=== PATIENT | female | born 1930 | race Caucasian/White ===

== ENCOUNTER 2016-08-01 14:14 | Inpatient (IN) | payer MEDICARE, BC ==
[~2016-08-01] VITALS: Ht 157.4 cm; Wt 48.1 kg
[2016-08-01 14:14] VITALS: BP 114/60
[~2016-08-01 14:14] MED LIST: ACETAMINOPHEN650 MG PO; ADVAIR 250/501 EA INH; ALAVERT10 M1 PO; ALBUTEROL2.5 MG/0.5 INH; ALBUTEROL2.5 MG/0.5 NEB; ALPRAZOLAM0.25 M2 PO; AMOXICILLIN500 M2 PO; ASPIRIN81 M1 PO; B121000 MCG/1 IM; BACTROBAN OINT0.9 GM T; BREO ELLIPTA 11 EACH IH; CEFTRIAXON1 GM/50 ML IV; CIPRO500 MG PO; CLARITIN10 MG PO; CORDROL20 MG PO; DIGITEK0.125 MG PO; DOXYCYCLINE HY100 M5 PO; DUONEB 3 MG/3 ML3 M1 NEB; FIORICET 50-301 EACH PO; FLONASE 0.05% 121 EA; FLONASE ALLERG9.9 ML NAS; IBU800 M1 PO; KEFLEX500 M1 PO; LEVAQUIN25 MG/M1 PO; LEVOFLOXACIN500 MG PO; LEVOTHROID0.05 MG PO; LEVOTHYROXINE0.05 MG PO; Lovenox40 MG/0.4 SC; MACROBID100 M1 PO; MAPAP EXTRA ST500 M1 PO; MAPAP325 MG PO; MILK OF MA400 MG/51 PO; MOTRIN CHI100 MG/51 PO; MOTRIN400 MG PO; Motrin,Rufen800 MG PO; NORCO 5-325 TA1 EACH PO; NOVAPLUS SOLU-M40 MG IV; PREDNISONE20 M1 PO; PREVACID SOLUTA30 MG PO; PRILOSEC20 M1 PO; PYRIDIUM100 MG PO; ROBITUSSIN AC 110 ML PO; ROBITUSSIN5 ML PO; SINGULAIR10 M1 PO; SINGULAIR10 MG PO; SYMBICORT1 AE1 INH; SYMBICORT1 AER INH; SYNTHROID,LEVO75 MCG PO; Synthroid,Levo50 MCG PO; TYLENOL EXTRA500 M2 PO; TYLENOL325 M1 PO; TYLENOL325 M2 PO; TYLENOL80 MG PO; VIBRAMYCIN100 MG PO; VITAMIN B1225 MCG IM; [UNRECOGNIZED DRUG - OTHER]
[2016-08-01] MEDS ORDERED: Synthroid,Levo50 MCG PO (14:34)
[2016-08-01] MEDS ORDERED: COUMADIN5 M2 PO (14:35)
[2016-08-01 15:05] LABS: BASO % 0.3 % (0.0-1.0); EOS # 0.5 10*3/uL (0.0-0.4); EOS % 6.5 % (1.0-4.0); HEMATOCRIT 36.3 % (37.0-47.0); HEMOGLOBIN 10.9 g/dl (12.0-16.0); LYMPH # 2.5 10*3/uL (1.3-4.4); LYMPH % 34.1 % (27.0-41.0); MEAN CELL VOLUME 70.1 fl (81.0-99.0); MONO # 0.5 10*3/uL (0.1-1.0); MONO % 6.9 % (3.0-9.0); NEUT # 3.8 10*3/uL (2.3-7.9); NEUT % 51.7 % (47.0-73.0); PLATELET COUNT AUTOMATED 355 10*3/uL (130-400); RED BLOOD COUNT 5.18 10*6/uL (4.10-5.10); RED CELL DISTRI WIDTH 19.4 % (0-14.5); WHITE BLOOD COUNT 7.3 10*3/uL (4.8-10.8)
[2016-08-01 15:19] LABS: PROTHROMBIN TIME 62.9 SECONDS (9.0-12.4)
[2016-08-01 15:20] LABS: ALBUMIN 2.8 gm/dl (3.1-4.5); ALKALINE PHOSPHATASE 100 U/L (45-117); BILIRUBIN, TOTAL 0.3 mg/dl (0.2-1.0); BUN 12 mg/dl (7-24); CARBON DIOXIDE 26 mmol/L (21-32); CHLORIDE 102 mmol/L (98-107); EST GLOM FILT AFRICAN AMERICAN > 60 ml/min; GLUCOSE 107 mg/dL (65-99); POTASSIUM 3.7 mmol/L (3.5-5.1); SGOT/AST 14 IU/L (3-35); SGPT/ALT 13 U/L (12-78); SODIUM 136 mmol/L (136-145); TOTAL PROTEIN 6.9 gm/dL (6.4-8.2)
[2016-08-01 15:21] LABS: INTERNATIONAL NORM RATIO 5.6 (2.0-3.5)
[2016-08-01 15:43] LABS: BILIRUBIN NEGATIVE (NEGATIVE); BLOOD 1+ (NEGATIVE); CLARITY SL CLOUDY (CLEAR); COLOR YELLOW (YELLOW); GLUCOSE NEGATIVE (NEGATIVE); KETONE TRACE (NEGATIVE); LEUKO ESTERASE 3+ (NEGATIVE); NITRITE POSITIVE (NEGATIVE); PH 6.5 (5.0-9.0); PROTEIN TRACE (NEGATIVE); UROBILINOGEN 0.2 E.U./dl (0.2-1.0)
[2016-08-01 16:41] LABS: BACTERIA 3+; URINE REFLEX COMMENT YES (NO); WBC TNTC wbc/hpf (0-5)
[2016-08-01 18:12] VITALS: BP 110/58
[2016-08-01] MEDS ORDERED: WARFARIN SOD5 MG PO ×2 (18:24→18:39)
[2016-08-01] MEDS ORDERED: COUMADIN3 M1 PO (18:26)
[2016-08-01 18:35] VITALS: BP 138/80
[2016-08-01 20:00] VITALS: BP 119/75
[2016-08-02] VITALS: BP 124/67
[2016-08-02 06:29] LABS: BASO % 0.4 % (0.0-1.0); EOS # 0.8 10*3/uL (0.0-0.4); HEMATOCRIT 36.2 % (37.0-47.0); HEMOGLOBIN 10.9 g/dl (12.0-16.0); IG # 0.1 10*3/uL (0.0-0.1); LYMPH % 35.6 % (27.0-41.0); MEAN CELL VOLUME 69.7 fl (81.0-99.0); MEAN CORPUSCULAR HGB CONC 30.1 g/dl (33.0-37.0); MEAN PLATELET VOLUME 7.9 fl (9.6-12.3); MONO # 0.7 10*3/uL (0.1-1.0); MONO % 8.5 % (3.0-9.0); NEUT # 3.9 10*3/uL (2.3-7.9); NEUT % 45.8 % (47.0-73.0); PLATELET COUNT AUTOMATED 357 10*3/uL (130-400); RED BLOOD COUNT 5.19 10*6/uL (4.10-5.10); RED CELL DISTRI WIDTH 19.4 % (0-14.5); WHITE BLOOD COUNT 8.5 10*3/uL (4.8-10.8)
[2016-08-02 07:02] LABS: INTERNATIONAL NORM RATIO 2.8 (2.0-3.5); PROTHROMBIN TIME 31.1 SECONDS (9.0-12.4)
[2016-08-02 07:07] LABS: BUN 10 mg/dl (7-24); CARBON DIOXIDE 27 mmol/L (21-32); CHLORIDE 102 mmol/L (98-107); EST GLOM FILT AFRICAN AMERICAN > 60 ml/min; FREE T4 1.07 ng/dl (0.76-1.46); GLUCOSE 81 mg/dL (65-99); POTASSIUM 3.8 mmol/L (3.5-5.1); SODIUM 139 mmol/L (136-145)
[2016-08-02 07:33] LABS: FOLIC ACID 9.93 ng/mL (>5.38)
[2016-08-02 08:00] VITALS: BP 108/60
[2016-08-02 12:00] VITALS: BP 118/67
[2016-08-02 16:00] VITALS: BP 123/65
[2016-08-02 20:00] VITALS: BP 109/57
[2016-08-03] VITALS: BP 102/51
[2016-08-03 06:44] LABS: INTERNATIONAL NORM RATIO 1.6 (2.0-3.5); PROTHROMBIN TIME 16.7 SECONDS (9.0-12.4)
[2016-08-03 08:00] VITALS: BP 115/63
[2016-08-03 12:00] VITALS: BP 120/62
[2016-08-03 16:00] VITALS: BP 121/63
[2016-08-03 20:00] VITALS: BP 118/59
[2016-08-04] VITALS: BP 127/68
[2016-08-04 07:55] LABS: INTERNATIONAL NORM RATIO 2.3 (2.0-3.5); PROTHROMBIN TIME 25.1 SECONDS (9.0-12.4)
[2016-08-04 08:00] VITALS: BP 126/67
[2016-08-04 16:00] VITALS: BP 144/71
[2016-08-04 20:00] VITALS: BP 116/54
[2016-08-05] VITALS: BP 114/60
[2016-08-05 07:18] LABS: INTERNATIONAL NORM RATIO 3.3 (2.0-3.5); PROTHROMBIN TIME 36.7 SECONDS (9.0-12.4)
[2016-08-05 08:00] VITALS: BP 117/78
[2016-08-05 12:00] VITALS: BP 128/82
[2016-08-05 16:00] VITALS: BP 110/67
[2016-08-05 20:00] VITALS: BP 123/74
[2016-08-06] VITALS: BP 115/65
[2016-08-06 06:59] LABS: BASO % 0.1 % (0.0-1.0); EOS % 0.2 % (1.0-4.0); HEMATOCRIT 35.1 % (37.0-47.0); HEMOGLOBIN 10.5 g/dl (12.0-16.0); IG # 0.1 10*3/uL (0.0-0.1); LYMPH % 30.6 % (27.0-41.0); MEAN CELL VOLUME 69.2 fl (81.0-99.0); MEAN CORPUSCULAR HGB 20.7 pg (27.0-31.0); MEAN CORPUSCULAR HGB CONC 29.9 g/dl (33.0-37.0); MONO # 0.7 10*3/uL (0.1-1.0); NEUT # 5.9 10*3/uL (2.3-7.9); PLATELET COUNT AUTOMATED 380 10*3/uL (130-400); RED BLOOD COUNT 5.07 10*6/uL (4.10-5.10); RED CELL DISTRI WIDTH 19.5 % (0-14.5); WHITE BLOOD COUNT 9.6 10*3/uL (4.8-10.8)
[2016-08-06 07:18] LABS: BUN 10 mg/dl (7-24); CARBON DIOXIDE 26 mmol/L (21-32); CHLORIDE 101 mmol/L (98-107); EST GLOM FILT AFRICAN AMERICAN > 60 ml/min; GLUCOSE 89 mg/dL (65-99); SODIUM 139 mmol/L (136-145)
[2016-08-06 07:21] LABS: PROTHROMBIN TIME 32.8 SECONDS (9.0-12.4)
[2016-08-06 08:00] VITALS: BP 139/75
[2016-08-06 12:00] VITALS: BP 136/72
[2016-08-06] MEDS ORDERED: LEVAQUIN750 M1 PO (12:59)
[2016-08-06] MEDS ORDERED: ORGAN-1 NR200 MG PO (13:01)
[2016-08-06] MEDS ORDERED: Coumadin3 MG PO (13:01)
[2016-08-06] MEDS ORDERED: PREDNISONE10 MG PO (13:01)
[2016-08-06] MEDS ORDERED: BENZONATATE100 M1 PO (13:01)
[2016-08-06 16:44] VITALS: BP 121/61
[2016-08-06] MEDS ORDERED: NORCO 5-325 TA1 EACH PO (17:13)
[2016-09-22] MEDS ORDERED: BENADRYL ALLERG25 M5 PO (13:20)
[2016-09-22] MEDS ORDERED: SYMBICORT1 AER INH (13:22)
[2016-09-26] MEDS ORDERED: LORAZEPAM0.5 MG PO (10:24)
[2016-09-26] MEDS ORDERED: D-1000 185 MG-11 TAB PO (10:24)
[2016-09-26] MEDS ORDERED: PREDNISONE10 MG PO (10:28)
[2016-09-26] MEDS ORDERED: LEVAQUIN750 M1 PO (10:28)
== END 2016-08-06 16:40 | disposition home health service (06) | DRG 190 ==
LOC: ED 14:14 → 4E 17:31 → EDHOLD 17:31 → 4E 17:47
PROVIDERS: Hospitalist; Internal Medicine; Nurse Practitioner Family
DX: J44.1 Chronic obstructive pulmonary disease with (acute) exacerbation (principal); E43 Unspecified severe protein-calorie malnutrition; I48.0 Paroxysmal atrial fibrillation; D68.59 Other primary thrombophilia; Z99.81 Dependence on supplemental oxygen; B96.5 Pseudomonas (aeruginosa) (mallei) (pseudomallei) as the cause of diseases classified elsewhere; N30.01 Acute cystitis with hematuria; Z68.1 Body mass index [BMI] 19.9 or less, adult; E03.9 Hypothyroidism, unspecified; D50.9 Iron deficiency anemia, unspecified; K21.9 Gastro-esophageal reflux disease without esophagitis; J45.909 Unspecified asthma, uncomplicated; G89.29 Other chronic pain; M54.9 Dorsalgia, unspecified; Z98.49 Cataract extraction status, unspecified eye; Z90.49 Acquired absence of other specified parts of digestive tract; Z90.710 Acquired absence of both cervix and uterus; Z98.890 Other specified postprocedural states; Z88.2 Allergy status to sulfonamides; Z88.1 Allergy status to other antibiotic agents; Z91.048 Other nonmedicinal substance allergy status; Z79.01 Long term (current) use of anticoagulants; Z79.899 Other long term (current) drug therapy; Z87.440 Personal history of urinary (tract) infections

== ENCOUNTER 2016-10-30 15:46 | Inpatient (IN) | payer MEDICARE, BC ==
[~2016-10-30] VITALS: Ht 160 cm; Wt 45.4 kg
--- NOTE | ~2016-10-30 | EKG ---
[place], [place] ELECTROCARDIOGRAM REPORT NAME: WILIAN RIOS UNIT #: [id number] ROOM: 510 DOCTOR: LOLI MORALES MD BIRTHDATE: [birth year] DOS: 10/31/2016 TIME: 10:47 a.m. FINDINGS: 1. Normal sinus rhythm. 2. 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 3. Poor precordial R wave progression. 4. Nonspecific T wave abnormalities. 5. Abnormal electrocardiogram. LOLI MORALES MD CM:EKGRPT:ELECTROCARDIOGRAM REPORT [id number] LOLI MORALES MD
--- NOTE | ~2016-10-30 | CON ---
[place], [place] REPORT OF CONSULTATION [id number] UNIT #: [id number] ROOM: 510 DOCTOR: LOLA ROSENBAUM MD BIRTHDATE: [birth year] DOS: 11/01/2016 PSYCHIATRIC CONSULT CHIEF COMPLAINT: "I don't eat much. I have never been a big eater." HISTORY OF PRESENT ILLNESS: This is an 86-year-old white female who resides at home with family. She presented due to dysuria as well as altered mental status. She reports that she has pain down there and complains that she does find herself increasingly confused in the evening and that a woman in a red dress has been visiting her. Of note, the patient has had a significant sleep disturbance with significant difficulty falling asleep for several weeks now and has also not been much of an eater eating mainly spoons at a time of a pureed diet. She is evaluated now to evaluate for the possibility of an underlying psychiatric condition and to see if there is anything that can be done to facilitate clearing the delirium. PAST MEDICAL HISTORY: Remarkable for asthma, chronic back pain, colon cancer, COPD, diverticulosis, GERD, hypothyroidism, AFib and severe protein calorie malnutrition. MENTAL STATUS: The patient is alert and oriented to person, place, but not necessarily time. As I evaluated her, she had a hard time answering time questions, but her daughter who was there would often intercede and answer those questions for her. She does appear somewhat depressed and endorses several neurovegetative symptoms including poor sleep and appetite, lack of energy. There is some memory loss noted as well. There is no ata or hypomania. There are no auditory or visual hallucinations, delusions or paranoia. DIAGNOSIS: Major depression, recurrent. PLAN: I will discontinue Restoril as I would prefer to avoid sedative hypnotics in the elderly. I will start her on Remeron 15 mg at bedtime. This will be a sleep aid as well as a significant appetite stimulant. Despite taking the daily vitamin D supplementation, her vitamin D level is low. We will go ahead and add vitamin D 50,000 international units weekly. TSH was elevated at 11. Hospitalists have already addressed adjusting her Synthroid level. At this point, she would benefit from further outpatient evaluation and treatment, but I do not see the criteria for an inpatient stay at the [facility]. [place], [place] REPORT OF CONSULTATION NAME: WILIAN RIOS UNIT #: [id number] ROOM: 510 DOCTOR: LOLA ROSENBAUM MD BIRTHDATE: [birth year] LOLA ROSENBAUM MD CM:CONSTR:REPORT OF CONSULTATION 0858 11/01/16 2256 interface
[~2016-10-30 15:46] MED LIST changes: +BENADRYL ALLERG25 M5 PO; +BENZONATATE100 M1 PO; +COUMADIN3 M1 PO; +COUMADIN5 M2 PO; +Coumadin3 MG PO; +D-1000 185 MG-11 TAB PO; +LEVAQUIN750 M1 PO; +LORAZEPAM0.5 MG PO; +ORGAN-1 NR200 MG PO; +PREDNISONE10 MG PO; +WARFARIN SOD5 MG PO
[2016-10-30 15:52] VITALS: BP 120/72
[2016-10-30 16:07] LABS: BILIRUBIN NEGATIVE (NEGATIVE); BLOOD TRACE-INTACT (NEGATIVE); CLARITY SL CLOUDY (CLEAR); COLOR YELLOW (YELLOW); GLUCOSE NEGATIVE (NEGATIVE); KETONE NEGATIVE (NEGATIVE); LEUKO ESTERASE 3+ (NEGATIVE); NITRITE NEGATIVE (NEGATIVE); PH 6.5 (5.0-9.0); PROTEIN NEGATIVE (NEGATIVE); SPECIFIC GRAVITY <= 1.005 (1.005-1.030); UROBILINOGEN 0.2 E.U./dl (0.2-1.0)
[2016-10-30 16:19] LABS: BACTERIA 1+; EPITHELIAL CELLS 15-20; URINE REFLEX COMMENT YES (NO); WBC TNTC wbc/hpf (0-5)
[2016-10-30 16:24] LABS: BASO % 0.2 % (0.0-1.0); EOS # 0.2 10*3/uL (0.0-0.4); EOS % 2.6 % (1.0-4.0); HEMATOCRIT 38.9 % (37.0-47.0); IG # 0.1 10*3/uL (0.0-0.1); LYMPH # 2.9 10*3/uL (1.3-4.4); LYMPH % 33.4 % (27.0-41.0); MEAN CELL VOLUME 75.8 fl (81.0-99.0); MEAN CORPUSCULAR HGB 23.4 pg (27.0-31.0); MEAN CORPUSCULAR HGB CONC 30.8 g/dl (33.0-37.0); MEAN PLATELET VOLUME 7.9 fl (9.6-12.3); MONO # 0.6 10*3/uL (0.1-1.0); MONO % 6.7 % (3.0-9.0); NEUT # 4.8 10*3/uL (2.3-7.9); NEUT % 55.9 % (47.0-73.0); PLATELET COUNT AUTOMATED 350 10*3/uL (130-400); RED BLOOD COUNT 5.13 10*6/uL (4.10-5.10); RED CELL DISTRI WIDTH 20.1 % (0-14.5); WHITE BLOOD COUNT 8.6 10*3/uL (4.8-10.8)
[2016-10-30 16:39] LABS: INTERNATIONAL NORM RATIO 1.4 (2.0-3.5); PROTHROMBIN TIME 15.6 SECONDS (9.0-12.4)
[2016-10-30 16:40] LABS: ALBUMIN 2.8 gm/dl (3.1-4.5); ALKALINE PHOSPHATASE 102 U/L (45-117); BILIRUBIN, TOTAL 0.2 mg/dl (0.2-1.0); BUN 9 mg/dl (7-24); CARBON DIOXIDE 28 mmol/L (21-32); CHLORIDE 100 mmol/L (98-107); CKMB 0.6 ng/ml (0.5-3.6); EST GLOM FILT AFRICAN AMERICAN > 60 ml/min; GLUCOSE 109 mg/dL (65-99); MAGNESIUM 2.1 mg/dL (1.5-2.1); POTASSIUM 3.7 mmol/L (3.5-5.1); SGOT/AST 15 IU/L (3-35); SGPT/ALT 10 U/L (12-78); SODIUM 138 mmol/L (136-145); TOTAL PROTEIN 6.7 gm/dL (6.4-8.2)
[2016-10-30 16:44] LABS: C-REACTIVE PROTEIN < 0.29 MG/DL (0-0.3); TROPONIN I < 0.015 ng/ml (<0.045)
[2016-10-30 18:06] VITALS: BP 135/83
[2016-10-30 18:19] LABS: LA>2 REFLEX 2 HR DRAW NOW
[2016-10-30 18:30] VITALS: BP 132/83
[2016-10-30] MEDS ORDERED: SYMBICORT1 AE1 INH (18:54)
[2016-10-30 20:00] VITALS: BP 122/69
[2016-10-31] VITALS: BP 120/78
[2016-10-31 06:45] LABS: BASO % 0.2 % (0.0-1.0); EOS # 0.4 10*3/uL (0.0-0.4); EOS % 3.8 % (1.0-4.0); HEMATOCRIT 36.8 % (37.0-47.0); HEMOGLOBIN 11.1 g/dl (12.0-16.0); IG # 0.1 10*3/uL (0.0-0.1); LYMPH # 2.9 10*3/uL (1.3-4.4); LYMPH % 28.8 % (27.0-41.0); MEAN CELL VOLUME 75.9 fl (81.0-99.0); MEAN CORPUSCULAR HGB 22.9 pg (27.0-31.0); MEAN CORPUSCULAR HGB CONC 30.2 g/dl (33.0-37.0); MEAN PLATELET VOLUME 8.1 fl (9.6-12.3); MONO # 0.8 10*3/uL (0.1-1.0); MONO % 8.2 % (3.0-9.0); NEUT # 5.9 10*3/uL (2.3-7.9); PLATELET COUNT AUTOMATED 337 10*3/uL (130-400); RED BLOOD COUNT 4.85 10*6/uL (4.10-5.10); RED CELL DISTRI WIDTH 20.1 % (0-14.5); WHITE BLOOD COUNT 10.1 10*3/uL (4.8-10.8)
[2016-10-31 06:59] LABS: BUN 5 mg/dl (7-24); CARBON DIOXIDE 23 mmol/L (21-32); CHLORIDE 108 mmol/L (98-107); EST GLOM FILT AFRICAN AMERICAN > 60 ml/min; FREE T4 0.87 ng/dl (0.76-1.46); GLUCOSE 73 mg/dL (65-99); MAGNESIUM 2.1 mg/dL (1.5-2.1); PHOSPHOROUS 2.7 mg/dL (2.5-4.9); POTASSIUM 3.9 mmol/L (3.5-5.1); SODIUM 140 mmol/L (136-145)
[2016-10-31 07:16] LABS: HEMOGLOBIN A1c 5.6 % (4.8-5.6)
[2016-10-31 07:26] LABS: INTERNATIONAL NORM RATIO 1.3 (2.0-3.5); PROTHROMBIN TIME 13.9 SECONDS (9.0-12.4)
[2016-10-31 08:30] LABS: FOLIC ACID 8.36 ng/mL (>5.38); VITAMIN D, 25-HYDROXY 21.1 ng/mL (30-100)
[2016-10-31 12:00] VITALS: BP 116/60
[2016-10-31 15:59] VITALS: BP 128/54
[2016-10-31 20:11] VITALS: BP 119/53
[2016-11-01] VITALS: BP 123/53
[2016-11-01 06:05] LABS: BASO % 0.2 % (0.0-1.0); EOS # 0.4 10*3/uL (0.0-0.4); EOS % 4.4 % (1.0-4.0); HEMATOCRIT 34.6 % (37.0-47.0); HEMOGLOBIN 10.4 g/dl (12.0-16.0); IG # 0.1 10*3/uL (0.0-0.1); LYMPH # 2.8 10*3/uL (1.3-4.4); LYMPH % 31.9 % (27.0-41.0); MEAN CELL VOLUME 76.4 fl (81.0-99.0); MEAN CORPUSCULAR HGB CONC 30.1 g/dl (33.0-37.0); MEAN PLATELET VOLUME 8.4 fl (9.6-12.3); MONO # 0.8 10*3/uL (0.1-1.0); NEUT # 4.6 10*3/uL (2.3-7.9); NEUT % 53.3 % (47.0-73.0); PLATELET COUNT AUTOMATED 313 10*3/uL (130-400); RED BLOOD COUNT 4.53 10*6/uL (4.10-5.10); WHITE BLOOD COUNT 8.7 10*3/uL (4.8-10.8)
[2016-11-01 06:22] LABS: BUN 2 mg/dl (7-24); CARBON DIOXIDE 24 mmol/L (21-32); CHLORIDE 108 mmol/L (98-107); EST GLOM FILT AFRICAN AMERICAN > 60 ml/min; GLUCOSE 74 mg/dL (65-99); POTASSIUM 3.8 mmol/L (3.5-5.1); SODIUM 143 mmol/L (136-145)
[2016-11-01 06:34] LABS: INTERNATIONAL NORM RATIO 1.2 (2.0-3.5); PROTHROMBIN TIME 12.8 SECONDS (9.0-12.4)
[2016-11-01 08:00] VITALS: BP 129/65
[2016-11-01 12:00] VITALS: BP 118/62
[2016-11-01 15:57] VITALS: BP 124/66
[2016-11-01 20:00] VITALS: BP 128/71
[2016-11-02] VITALS: BP 147/79
[2016-11-02 07:29] LABS: INTERNATIONAL NORM RATIO 1.3 (2.0-3.5); PROTHROMBIN TIME 13.5 SECONDS (9.0-12.4)
[2016-11-02 08:00] VITALS: BP 128/78
[2016-11-02 12:00] VITALS: BP 127/66
[2016-11-02] MEDS ORDERED: VITAMIN D50000 UNIT PO (12:34)
[2016-11-02] MEDS ORDERED: D-1000 185 MG-11 TAB PO (12:34)
[2016-11-02] MEDS ORDERED: COUMADIN4 M2 PO (12:34)
[2016-11-02] MEDS ORDERED: MIRTAZAPINE15 M2 PO (12:34)
[2016-11-02] MEDS ORDERED: LEVAQUIN500 M2 PO (12:34)
[2016-11-02] MEDS ORDERED: REMEDY WITH OLI1 PAS T (12:42)
== END 2016-11-02 14:43 | disposition home health service (06) | DRG 689 ==
LOC: ED 15:46 → EDHOLD 16:56 → 5E 16:56
PROVIDERS: Emergency Medicine; Internal Medicine; Student in an Organized Health Care Education/Training Program
DX: N39.0 Urinary tract infection, site not specified (principal); G93.41 Metabolic encephalopathy; E43 Unspecified severe protein-calorie malnutrition; J44.9 Chronic obstructive pulmonary disease, unspecified; I48.0 Paroxysmal atrial fibrillation; F33.9 Major depressive disorder, recurrent, unspecified; Z68.1 Body mass index [BMI] 19.9 or less, adult; E55.9 Vitamin D deficiency, unspecified; K21.9 Gastro-esophageal reflux disease without esophagitis; E03.9 Hypothyroidism, unspecified; Z90.49 Acquired absence of other specified parts of digestive tract; Z90.710 Acquired absence of both cervix and uterus; Z98.49 Cataract extraction status, unspecified eye; Z84.89 Family history of other specified conditions; Z88.2 Allergy status to sulfonamides; Z88.8 Allergy status to other drugs, medicaments and biological substances; Z91.048 Other nonmedicinal substance allergy status; Z79.51 Long term (current) use of inhaled steroids; Z79.899 Other long term (current) drug therapy; Z79.01 Long term (current) use of anticoagulants

== ENCOUNTER 2016-12-16 23:57 | Inpatient (IN) | payer MEDICARE, BC ==
[~2016-12-16] VITALS: Ht 157.5 cm; Wt 45.4 kg
--- NOTE | ~2016-12-16 | PR ---
[place], [place] PROGRESS NOTE NAME: WILIAN RIOS UNIT #: [id number] ROOM: 409 DOCTOR: ROSA CORLEY MD BIRTHDATE: [birth year] DOS: 12/18/2016 PULMONARY FOLLOWUP NOTE SUBJECTIVE: She was seen and examined on 12/18/2016. She has been noted comfortable, still describes symptoms of shortness of breath and some chest congestion and cough. Denies symptoms of abdominal pain. Sputum culture was sent yesterday for patient to the laboratory as well. OBJECTIVE: VITAL SIGNS: Normal temperature, respiratory rate 20, heart rate of 85, blood pressure 126/68. Intake is 1200, output 300 mL. Pulse oxygen saturation on 2 liters nasal cannula was recorded 98% saturation. HEENT: Examination shows no acute change. NECK: Supple. CARDIOVASCULAR: S1, S2 audible. LUNGS: Shows mild to moderate expiratory wheezing, decreased from previous examination. ABDOMEN: Soft and nontender. LABORATORY DATA: The Gram stain of the sputum for the patient showed moderate white blood cells, rare epithelial cells, moderate gram-positive cocci in pairs. BMP of the patient on 12/18/2016 showed glucose 118, BUN and creatinine normal. Sodium 135. Dig level of the patient noted as 0.69. INR noted at 4.3, which was noted above the therapeutic range. CBC this morning, WBC count 8.4, hemoglobin 11.4, hematocrit 36.0, platelet count normal. IMPRESSION: 1. The patient who has been currently noted with acute exacerbation of bronchial asthma. The patient is responding to treatment. 2. History of chronic interstitial pulmonary fibrosis as well. 3. Mild Coumadin toxicity secondary to drug interaction. PLAN OF TREATMENT: Reduce the dose of Solu-Medrol for this patient. Continue bronchodilators, oxygen supplementation, monitor culture results of the sputum. Supportive therapy, plan and management. Further treatment changes will be done based on the progression of the illness. Adjust the dose of the Coumadin for the patient because of the elevated INR. [place], [place] PROGRESS NOTE NAME: WILIAN RIOS UNIT #: [id number] ROOM: 409 DOCTOR: ROSA CORLEY MD BIRTHDATE: [birth year] ROSA BARAHONA MD CM:PNTRANS [id number] ROSA TOLENTINO MD 12/18/162318 interface
--- NOTE | ~2016-12-16 | PR ---
[place], [place] PROGRESS NOTE [facility]: [id number] UNIT #: [id number] ROOM: 409 DOCTOR: JUN TOLENTINO MD,ROSA BIRTHDATE: [birth year] DOS: 12/20/2016 SUBJECTIVE: She has been noted comfortable at this time, resting on the bed. Coughing, wheezing and shortness of breath are resolving. She was assessed yesterday for need of oxygen supplementation for the home setting, will be needing oxygen 2 liters nasal cannula. The saturation dropped to 88% with ambulation. Two liters nasal cannula resulted in resolution of the hypoxia. OBJECTIVE: VITAL SIGNS: Showed normal temperature, respirations 18, heart rate 68, blood pressure 121/56. The pulse oxygen saturation this morning on 2 L nasal cannula 99% saturation. HEENT: Showed no acute change. NECK: Supple. CARDIOVASCULAR: S1, S2 is audible. LUNGS: The patient was noted with occasional wheezing and crackles. ABDOMEN: Soft, nontender. LABORATORY DATA: BMP was noted as normal. The INR today was noted as 2.6. Urine culture showed no bacterial growth. IMPRESSION: 1. The patient with progressive resolution of acute exacerbation of bronchial asthma with intravenous symptoms. 2. Acute hypoxic respiratory failure, resolving as well. 3. Overall debility and other medical problems including history of allergic rhinitis and pulmonary fibrosis. PLAN OF TREATMENT: From the pulmonary standpoint, the patient could be discharged home on tapering dose of prednisone and oxygen supplementation. Other supportive therapy, plan and management to be continued at this time. Usual medical management. Other plan of care as previously. ROSA BARAHONA MD CM:PNTRANS [id number] ROSA TOLENTINO MD 12/21/16 0026 interface
--- NOTE | ~2016-12-16 | PR ---
[place], [place] PROGRESS NOTE NAME: WILIAN RIOS UNIT #: [id number] ROOM: 409 DOCTOR: ROSA CORLEY MD BIRTHDATE: [birth year] DOS: 12/19/2016 PULMONARY PROGRESS NOTE SUBJECTIVE: The patient has been noted without any ongoing acute new complaints. The shortness of breath of the patient and the cough and all the symptoms have been slowly resolving. She has been getting physical therapy as well. OBJECTIVE: VITAL SIGNS: For the patient which has been recorded shows a normal temperature, respiratory rate 20, heart rate 71, blood pressure was noted as 128/62. Pulse oxygen saturation recorded on 2 liters nasal cannula 98% saturation. HEENT: Examination shows no acute change. NECK: Supple. CARDIOVASCULAR: S1, S2 audible. LUNGS: Noted with scattered wheezing and inspiratory crackles. ABDOMEN: Soft, nontender. LABORATORY DATA: The patient's sputum culture, light growth of yeast. The INR was elevated still at 4.3. BMP this morning was noted essentially, sodium 135, otherwise grossly normal. IMPRESSION: 1. The patient with resolving acute tracheobronchitis with exacerbation of bronchial asthma. 2. Coumadin toxicity, still persistent secondary to drug interaction without any abnormal bleeding. PLAN OF TREATMENT: No changes from the pulmonary standpoint for this patient in the antibiotics. The dose of corticosteroids will be decreased to b.i.d. The patient could be considered for possible home discharge tomorrow morning. Home oxygen assessment will be ordered for the patient as well in preparation for discharge possibly tomorrow. Other supportive plan and management and care. Usual treatment. Assessment and management has been discussed with one of the patient's son as well. [place], [place] PROGRESS NOTE NAME: WILIAN RIOS UNIT #: [id number] ROOM: 409 DOCTOR: ROSA CORLEY MD BIRTHDATE: [birth year] ROSA BARAHONA MD CM:PNTRANS [id number] ROSA TOLENTINO MD 12/19/16 8965 interface
--- NOTE | ~2016-12-16 | CON ---
[place], [place] REPORT OF CONSULTATION [id number] UNIT #: [id number] ROOM: 409 DOCTOR: ROSA CORLEY MD BIRTHDATE: [birth year] DOS: 12/17/2016 PULMONARY CONSULTATION EVALUATION AND MANAGEMENT Ordered by Dr. Luciana Kim. REASON FOR CONSULTATION: To assess the patient for ongoing acute respiratory complaints. HISTORY OF PRESENT ILLNESS: An 86 years old female who has been known to me with past history of uncomplicated severe persistent bronchial asthma as well as history of pulmonary fibrosis. The patient presented and admitted under hospitalist service this morning for the management of ongoing acute respiratory complaints. The patient has been noting symptoms of increasing shortness of breath associated with cough. The cough has been noted to be severe with small amount of sputum expectoration. She was also noted with heavy breathing with symptoms of wheezing as described by the patient's son, one of the son who was present with the patient. The patient denies any symptoms of chest pain. Denies symptoms of hemoptysis. Currently, resting comfortably in the bed. She is also described to be more forgetful and confused recently as per family members. REVIEW OF SYSTEMS: CONSTITUTIONAL SYMPTOMS: Fatigue and tiredness noted. Denies symptoms of fever or chills. EYES: Denies any burning, redness, or tenderness. EARS, NOSE, THROAT SYMPTOMS: No sore throat, hoarseness, otalgia, postnasal drainage or epistaxis. CARDIOVASCULAR SYSTEM: Denies anginal pain, edema or pain of the lower extremities or palpitations. GASTROINTESTINAL SYMPTOMS: Denies dysphagia, nausea, vomiting, diarrhea, abdominal pain, hematemesis, melena, or hematochezia. GENITOURINARY SYMPTOMS: Denies dysuria, suprapubic pain, hematuria. SKIN: Denies lesions or rashes. MUSCULOSKELETAL SYMPTOMS: Denies acute joint pain, redness, tenderness, or lesions. CENTRAL NERVOUS SYSTEM: Denies dizziness, headache. Denies any symptoms of seizures, tingling sensation of the extremities, focal neurologic deficit. Remaining systems were reviewed, they were noted all negative. PAST MEDICAL HISTORY: 1. Past hospitalization was noted for this patient in this hospital in September 2016 for the medical management of acute exacerbation of bronchial asthma, tracheobronchitis, required therapeutic bronchoscopy at that time and subsequently discharged. 2. History of allergic rhinitis and uncomplicated etgdwrhz-ar-ogmyye persistent bronchial asthma. 3. Idiopathic pulmonary fibrosis. 4. Urinary tract infection. [place], [place] REPORT OF CONSULTATION NAME: WILIAN RIOS UNIT #: [id number] ROOM: [facility] DOCTOR: ROSA CORLEY MD BIRTHDATE: [birth year] 5. Chronic hypoxic respiratory failure. 6. Hypothyroidism. 7. Anemia of chronic disease. 8. Increased confusion for the patient, intermittently the patient with confusional status. PAST SURGICAL HISTORY: 1. Bronchoscopy, last bronchoscopy done in September 2016. 2. Bilateral cataract extraction with lens implantation. 3. . 4. Hysterectomy. 5. Cholecystectomy. SOCIAL HISTORY: The patient is , has 9 children. Denies history of alcohol use or illicit drug use. FAMILY HISTORY: Father at the age of 7070 years old from complication of silicosis. Mother at the age of ____ years old from unknown medical illnesses. MEDICATIONS: Current administered medications noted use of IV Solu-Medrol 60 mg q. 8 hours ____ b.i.d., DuoNeb every 4 hours, Levaquin 500 mg IV daily, Lovenox 40 mg for DVT prophylaxis, and p.r.n. medications administration. ALLERGIES: Drug allergy history was noted: 1. MACROBID. 2. SULFA DRUGS. PHYSICAL EXAMINATION: GENERAL: This is an 86 years old female who has been currently resting on her bed. Height of 5 feet 2 inches, weight 100 pounds, BMI 18.3. VITAL SIGNS: Normal temperature, respiratory rate 20, heart rate of 87, blood pressure 111/69. The pulse oxygen saturation on 3 liters nasal cannula 94% saturation. HEENT: Examination shows head was atraumatic. Eyes: No icterus. NECK: Supple. CARDIOVASCULAR SYSTEM: S1, S2 audible. LUNGS: Exam of the lung was noted with moderate decreased breath sounds. Diffuse expiratory wheezing, occasional inspiratory crackles of the lungs bilaterally. ABDOMEN: Flat, soft, nontender. EXTREMITIES: Showed no edema, clubbing or cyanosis. CENTRAL NERVOUS SYSTEM: For the patient, cranial nerves 2-12 intact. No focal deficit. MUSCULOSKELETAL SYMPTOMS: No deformities. SKIN: Showed no lesions or rashes. LABORATORY DATA: The patient's CBC this morning, WBC count 11.1, hemoglobin and hematocrit normal, platelet count was normal. BMP of the patient of 12/17/2016, BUN of 6, creatinine was normal, glucose 109. CBC repeated again was noted as [place], [place] REPORT OF CONSULTATION NAME: WILIAN RIOS UNIT #: [id number] ROOM: 409 DOCTOR: JUN TOLENTINO MD,ROSA BIRTHDATE: [birth year] normal this morning. The BMP of patient this morning, glucose 147. Remaining BMP was normal. PT/INR were noted 3.2 with a PTT of 39.2. IMPRESSION: 1. The patient who has been currently noted with recurrence of acute exacerbation of bronchial asthma with acute tracheobronchitis. 2. History of idiopathic pulmonary fibrosis. 3. ____. 4. History of chronic anticoagulation and history of atrial fibrillation as well. The atrial fibrillation noted well controlled with current medical treatment. 5. Confusion as well as progressive illness for the patient, possibility of dementia, onset should be considered in the assessment as well. 6. Low BMI status for the patient for a long period of time. PLAN OF TREATMENT: Agree with current use of corticosteroids, bronchodilator, antibiotic, and use of the Mucinex. Adjustment of the dose of Coumadin for the patient to prevent further anticoagulation problems since the patient was also taking the Levaquin, which would result in drug interaction. The sputum for Gram stain and culture will be collected. Other supportive therapy, plan of management and care, and plan of treatment and therapies. Usual medical management for the patient. Further change in treatment will be done based on the progression of the illness. Thanks for allowing me to participate in the care of this patient. ROSA BARAHONA MD CM:CONSTR:REPORT OF CONSULTATION 1133 12/18/16 2100 interface
[~2016-12-16 23:57] MED LIST changes: +COUMADIN4 M2 PO; +LEVAQUIN500 M2 PO; +MIRTAZAPINE15 M2 PO; +REMEDY WITH OLI1 PAS T; +VITAMIN D50000 UNIT PO
[2016-12-17] VITALS: BP 123/71
[2016-12-17 00:17] LABS: BASO % 0.4 % (0.0-1.0); EOS # 0.7 10*3/uL (0.0-0.4); EOS % 6.5 % (1.0-4.0); HEMOGLOBIN 12.1 g/dl (12.0-16.0); LYMPH # 4.5 10*3/uL (1.3-4.4); LYMPH % 40.3 % (27.0-41.0); MEAN CELL VOLUME 76.6 fl (81.0-99.0); MEAN CORPUSCULAR HGB 23.8 pg (27.0-31.0); MEAN PLATELET VOLUME 8.6 fl (9.6-12.3); MONO # 0.9 10*3/uL (0.1-1.0); MONO % 8.5 % (3.0-9.0); NEUT # 4.9 10*3/uL (2.3-7.9); NEUT % 44.1 % (47.0-73.0); PLATELET COUNT AUTOMATED 334 10*3/uL (130-400); RED BLOOD COUNT 5.09 10*6/uL (4.10-5.10); RED CELL DISTRI WIDTH 17.5 % (0-14.5); WHITE BLOOD COUNT 11.1 10*3/uL (4.8-10.8)
[2016-12-17 00:35] LABS: BUN 6 mg/dl (7-24); CARBON DIOXIDE 25 mmol/L (21-32); CHLORIDE 104 mmol/L (98-107); EST GLOM FILT AFRICAN AMERICAN > 60 ml/min; GLUCOSE 109 mg/dL (65-99); POTASSIUM 3.9 mmol/L (3.5-5.1); SODIUM 138 mmol/L (136-145)
[2016-12-17] MEDS ORDERED: REMERON15 M2 PO (00:36)
[2016-12-17 00:40] LABS: TROPONIN I < 0.015 ng/ml (<0.045)
[2016-12-17 01:00] VITALS: BP 121/63
[2016-12-17 07:12] LABS: HEMATOCRIT 38.9 % (37.0-47.0); HEMOGLOBIN 12.1 g/dl (12.0-16.0); MEAN CELL VOLUME 76.6 fl (81.0-99.0); MEAN CORPUSCULAR HGB 23.8 pg (27.0-31.0); MEAN CORPUSCULAR HGB CONC 31.1 g/dl (33.0-37.0); MEAN PLATELET VOLUME 8.8 fl (9.6-12.3); PLATELET COUNT AUTOMATED 344 10*3/uL (130-400); RED BLOOD COUNT 5.08 10*6/uL (4.10-5.10); RED CELL DISTRI WIDTH 17.3 % (0-14.5)
[2016-12-17 07:34] LABS: BUN 7 mg/dl (7-24); CARBON DIOXIDE 25 mmol/L (21-32); CHLORIDE 103 mmol/L (98-107); EST GLOM FILT AFRICAN AMERICAN > 60 ml/min; GLUCOSE 147 mg/dL (65-99); MICROCYTOSIS SLIGHT; NEUTROPHILS 100 % (47-73); PLATELET SUFFICIENCY NORMAL (NORMAL); POTASSIUM 4.1 mmol/L (3.5-5.1); SODIUM 140 mmol/L (136-145); TOTAL CELLS COUNTED 100 #CELLS
[2016-12-17 07:50] LABS: INTERNATIONAL NORM RATIO 3.2 (2.0-3.5); PROTHROMBIN TIME 36.3 SECONDS (9.0-12.4)
[2016-12-17 08:00] VITALS: BP 111/69
[2016-12-17 12:00] VITALS: BP 144/83
[2016-12-17 16:00] VITALS: BP 142/81
[2016-12-17 20:00] VITALS: BP 106/57
[2016-12-18] VITALS: BP 106/52
[2016-12-18 06:41] LABS: BASO % 0.1 % (0.0-1.0); HEMOGLOBIN 11.4 g/dl (12.0-16.0); LYMPH # 1.2 10*3/uL (1.3-4.4); LYMPH % 14.2 % (27.0-41.0); MEAN CELL VOLUME 75.5 fl (81.0-99.0); MEAN CORPUSCULAR HGB 23.9 pg (27.0-31.0); MEAN CORPUSCULAR HGB CONC 31.7 g/dl (33.0-37.0); MEAN PLATELET VOLUME 8.7 fl (9.6-12.3); MONO # 0.4 10*3/uL (0.1-1.0); MONO % 4.7 % (3.0-9.0); NEUT # 6.8 10*3/uL (2.3-7.9); NEUT % 80.5 % (47.0-73.0); PLATELET COUNT AUTOMATED 360 10*3/uL (130-400); RED BLOOD COUNT 4.77 10*6/uL (4.10-5.10); RED CELL DISTRI WIDTH 17.1 % (0-14.5); WHITE BLOOD COUNT 8.4 10*3/uL (4.8-10.8)
[2016-12-18 07:02] LABS: INTERNATIONAL NORM RATIO 4.3 (2.0-3.5); PROTHROMBIN TIME 49.5 SECONDS (9.0-12.4)
[2016-12-18 07:05] LABS: BUN 10 mg/dl (7-24); CARBON DIOXIDE 24 mmol/L (21-32); CHLORIDE 101 mmol/L (98-107); EST GLOM FILT AFRICAN AMERICAN > 60 ml/min; GLUCOSE 118 mg/dL (65-99); POTASSIUM 4.2 mmol/L (3.5-5.1); SODIUM 135 mmol/L (136-145)
[2016-12-18 07:19] LABS: DIGOXIN 0.69 ng/ml (0.8-2.0)
[2016-12-18 08:00] VITALS: BP 126/68
[2016-12-18 12:00] VITALS: BP 132/55
[2016-12-18 16:00] VITALS: BP 134/62
[2016-12-18 20:00] VITALS: BP 115/61
[2016-12-19] VITALS: BP 125/70
[2016-12-19 07:23] LABS: BASO % 0.1 % (0.0-1.0); HEMATOCRIT 41.4 % (37.0-47.0); HEMOGLOBIN 12.5 g/dl (12.0-16.0); IG # 0.1 10*3/uL (0.0-0.1); LYMPH % 9.8 % (27.0-41.0); MEAN CELL VOLUME 77.5 fl (81.0-99.0); MEAN CORPUSCULAR HGB 23.4 pg (27.0-31.0); MEAN CORPUSCULAR HGB CONC 30.2 g/dl (33.0-37.0); MEAN PLATELET VOLUME 9.5 fl (9.6-12.3); MONO # 0.4 10*3/uL (0.1-1.0); MONO % 4.1 % (3.0-9.0); NEUT # 9.1 10*3/uL (2.3-7.9); NEUT % 85.5 % (47.0-73.0); PLATELET COUNT AUTOMATED 395 10*3/uL (130-400); RED BLOOD COUNT 5.34 10*6/uL (4.10-5.10); RED CELL DISTRI WIDTH 17.4 % (0-14.5); WHITE BLOOD COUNT 10.7 10*3/uL (4.8-10.8)
[2016-12-19 07:33] LABS: INTERNATIONAL NORM RATIO 4.3 (2.0-3.5); PROTHROMBIN TIME 50.1 SECONDS (9.0-12.4)
[2016-12-19 07:35] LABS: CHLORIDE 101 mmol/L (98-107); POTASSIUM 4.6 mmol/L (3.5-5.1); SODIUM 135 mmol/L (136-145)
[2016-12-19 07:50] LABS: BUN 10 mg/dl (7-24); CARBON DIOXIDE 25 mmol/L (21-32); EST GLOM FILT AFRICAN AMERICAN > 60 ml/min; GLUCOSE 106 mg/dL (65-99)
[2016-12-19 08:00] VITALS: BP 128/62
[2016-12-19 11:16] LABS: BILIRUBIN NEGATIVE (NEGATIVE); BLOOD TRACE-LYSED (NEGATIVE); CLARITY SL CLOUDY (CLEAR); COLOR YELLOW (YELLOW); GLUCOSE NEGATIVE (NEGATIVE); KETONE NEGATIVE (NEGATIVE); LEUKO ESTERASE 1+ (NEGATIVE); NITRITE NEGATIVE (NEGATIVE); PROTEIN NEGATIVE (NEGATIVE); UROBILINOGEN 0.2 E.U./dl (0.2-1.0)
[2016-12-19 12:00] VITALS: BP 133/67
[2016-12-19 13:03] LABS: BACTERIA 1+; URINE REFLEX COMMENT YES (NO); WBC 21-30 wbc/hpf (0-5)
[2016-12-19 15:55] VITALS: BP 120/67
[2016-12-19 20:00] VITALS: BP 133/86
[2016-12-20] VITALS: BP 101/58
[2016-12-20 06:43] LABS: BUN 11 mg/dl (7-24); CARBON DIOXIDE 28 mmol/L (21-32); CHLORIDE 103 mmol/L (98-107); EST GLOM FILT AFRICAN AMERICAN > 60 ml/min; GLUCOSE 86 mg/dL (65-99); POTASSIUM 4.3 mmol/L (3.5-5.1); SODIUM 137 mmol/L (136-145)
[2016-12-20 06:57] LABS: INTERNATIONAL NORM RATIO 2.6 (2.0-3.5); PROTHROMBIN TIME 29.7 SECONDS (9.0-12.4)
[2016-12-20 08:00] VITALS: BP 121/56
[2016-12-20] MEDS ORDERED: OXYGEN NAS (10:17)
[2016-12-20 12:00] VITALS: BP 126/84
[2016-12-20] MEDS ORDERED: MUCINEX ER600 MG PO (12:42)
[2016-12-20] MEDS ORDERED: LEVAQUIN500 M2 PO (12:42)
[2016-12-20] MEDS ORDERED: PREDNISONE10 MG PO (12:42)
== END 2016-12-20 13:55 | disposition home health service (06) | DRG 189 ==
LOC: ED 23:57 → 4E 12-17 00:33 → EDHOLD 12-17 00:33 → 4E 12-17 00:45
PROVIDERS: Emergency Medicine; Internal Medicine; Internal Medicine Hospice and Palliative Medicine; Student in an Organized Health Care Education/Training Program
DX: J96.01 Acute respiratory failure with hypoxia (principal); E46 Unspecified protein-calorie malnutrition; J44.0 Chronic obstructive pulmonary disease with (acute) lower respiratory infection; J84.112 Idiopathic pulmonary fibrosis; J44.1 Chronic obstructive pulmonary disease with (acute) exacerbation; I48.0 Paroxysmal atrial fibrillation; J45.901 Unspecified asthma with (acute) exacerbation; E03.9 Hypothyroidism, unspecified; J20.9 Acute bronchitis, unspecified; Z68.1 Body mass index [BMI] 19.9 or less, adult; T45.515A Adverse effect of anticoagulants, initial encounter; K21.9 Gastro-esophageal reflux disease without esophagitis; M54.9 Dorsalgia, unspecified; R71.8 Other abnormality of red blood cells; Z79.01 Long term (current) use of anticoagulants; Z87.440 Personal history of urinary (tract) infections; Z90.49 Acquired absence of other specified parts of digestive tract; Z90.710 Acquired absence of both cervix and uterus; Z98.49 Cataract extraction status, unspecified eye; Z84.89 Family history of other specified conditions; Z88.2 Allergy status to sulfonamides; Z88.8 Allergy status to other drugs, medicaments and biological substances; Z91.048 Other nonmedicinal substance allergy status; Z79.51 Long term (current) use of inhaled steroids; Z79.899 Other long term (current) drug therapy; Y92.89 Other specified places as the place of occurrence of the external cause

== ENCOUNTER 2017-02-19 11:20 | Inpatient (IN) | payer MEDICARE, BC ==
[2017-02-19] VITALS (8 sets, daily range): BP systolic 103–135; BP diastolic 48–81
[~2017-02-19] VITALS: Ht 154.9 cm; Wt 46.9 kg
--- NOTE | ~2017-02-19 | PR ---
[place], [place] PROGRESS NOTE NAME: WILIAN RIOS [facility] #: [id number] UNIT #: [id number] ROOM: 427 DOCTOR: JUN TOLENTINO MD,ROSA BIRTHDATE: [birth year] DOS: 02/23/2017 SUBJECTIVE: The patient has been noted without any acute complaints, still noted to be coughing and not expectorating much sputum. There were no symptoms of chest pain. The patient has been noted to be comfortable at this time. Continue antibiotics, bronchodilators and other treatments. OBJECTIVE: VITAL SIGNS: Show the temperature to be normal, respiratory rate 18, heart rate 85 and blood pressure 140/70. The pulse oxygen saturation recorded at this time is 98% on 2 liters nasal cannula. HEENT: Shows no acute change. NECK: Supple. CARDIOVASCULAR: S1, S2 audible. LUNGS: Noted without any wheezing. Breath sounds are noted to be mildly decreased, more on the right than the left side. ABDOMEN: Soft and nontender. LABORATORY DATA: PT/INR today was noted as 2.5. CBC this morning, normal platelet count and WBC, hemoglobin of 10.9 and hematocrit of 35.8. IMPRESSION: 1. The patient with atelectasis, partially of the left upper and the left lower lobe ____ mucus impaction with acute pneumonia and history of chronic interstitial pulmonary fibrosis. 2. Acute on chronic hypoxic respiratory failure secondary to above. 3. Chronic anticoagulation placed on hold, noted to be therapeutic today. PLAN OF TREATMENT: Continue the Coumadin on hold. Continue monitoring INR. Bronchoscopy will be planned to be done in the morning for further assessment. Treatment changes to be done after bronchoscopy tomorrow if necessary. No immediate treatment for today needs to be made. ROSA BARAHONA MD CM:PNTRANS 1402 ROSA TOLENTINO MD 02/24/17 0515 interface
--- NOTE | ~2017-02-19 | PR ---
[place], [place] PROGRESS NOTE NAME[id number] UNIT #: [id number] ROOM: 427 DOCTOR: JUN TOLENTINO MD,ROSA BIRTHDATE: [birth year] DOS: 02/24/2017 PULMONARY FOLLOWUP SUBJECTIVE: The patient has been noted comfortable at this time without any acute distress. The coughing has been noted the same. She is n.p.o. past midnight for bronchoscopy planned for today. OBJECTIVE: VITAL SIGNS: Show normal temperature, respiratory rate 17, heart rate 77, and blood pressure 135/75. Intake is 720 and output 1800 mL. Pulse oxygen saturation on 2 L nasal cannula is 98%. HEENT: Age-related changes. NECK: Supple. CARDIOVASCULAR: S1, S2 audible. LUNGS: Moderate decreased breath sounds, scattered expiratory wheezing. No crackles. ABDOMEN: Soft and nontender. EXTREMITIES: Show no edema. LABORATORY DATA: INR today was noted as 1.6, which is subtherapeutic. CBC this morning, noted mild anemia, otherwise normal CBC. BUN and creatinine were noted normal today. IMPRESSION: Acute pneumonia. Area of atelectasis in left upper lobe as well as in the left lower lobe with acute pneumonia, suspected any acute on chronic hypoxic respiratory failure with exacerbation of bronchial asthma. PLAN OF TREATMENT: Proceed with bronchoscopy as planned. The INR was also noted therapeutic. Any modification in treatment if necessary will be done after the bronchoscopy. ROSA BARAHONA MD CM:PNTRANS [id number] ROSA TOLENTINO MD 02/24/17 1219 interface
--- NOTE | ~2017-02-19 | CON ---
[place], [place] REPORT OF CONSULTATION [id number] UNIT #: [id number] ROOM: 427 DOCTOR: ROSA CORLEY MD BIRTHDATE: [birth year] DOS: 02/21/2017 REASON FOR CONSULTATION: To assess for acute respiratory failure and other medical issues including pneumonia. HISTORY OF PRESENT ILLNESS: An 86-years old white female known with history of uncomplicated norhxjzg-ph-rywsoi persistent bronchial asthma, history of chronic pulmonary fibrosis and respiratory failure, presented to the Emergency Room. The patient has reported symptoms of getting increased shortness of breath and cough, which has not been working. The patient has been noted with a cough with some sputum expectoration at time also noted with wheezing. She has been taking the nebulized bronchodilators, short-acting bronchodilators stated that it has not been helping her. Cough has been described with the chest congestion intermittently. There were symptoms of hemoptysis. She had been admitted to the hospital assessment in the Emergency Room for the medical management of acute on chronic hypoxic respiratory failure. The oxygen saturation recorded at 84% on usual oxygen supplementation 2 liters cannula at the time of the admission. The patient stated that she has been still noted the coughing with some sputum expectoration. Denies symptoms of chest pain. REVIEW OF SYSTEMS: CONSTITUTIONAL: Fatigue and tiredness noted without symptoms of fever or chills. EYES: Denies any burning, redness, or tenderness. EARS, NOSE, THROAT SYMPTOMS: No sore throat, hoarseness, otalgia, postnasal drainage. CARDIOVASCULAR: Denies anginal pain, edema or pain of the lower extremities. GASTROINTESTINAL: Dysphagia, nausea, vomiting, diarrhea, abdominal pain, hematemesis, melena, or hematochezia. SKIN: Denies lesions or rashes. CENTRAL NERVOUS SYSTEM: Denies dizziness, headache or diplopia. Remaining systems were reviewed. They were noted all negative. PAST MEDICAL HISTORY: 1. Noted with history of uncomplicated fegglgwg-kd-fnidqs bronchial asthma. 2. History of allergic rhinitis. 3. Recurrent urinary tract infection. 4. Idiopathic pulmonary fibrosis. 5. Chronic hypoxic respiratory failure, use of oxygen 2 liter nasal cannula. 6. History of hypothyroidism. 7. Anemia of chronic disease. 8. Confusion, which has been noted intermittently with possibility of dementia with forgetfulness at times. 9. History of chronic atrial fibrillation with anticoagulation. PAST SURGICAL HISTORY: 1. Noted therapeutic bronchoscopies in the past, last therapeutic bronchoscopy done in 09/2016. 2. Bilateral cataract extraction, lens implantation. [place], [place] REPORT OF CONSULTATION NAME: WILIAN RIOS UNIT #: [id number] ROOM: 427 DOCTOR: REJI CORLEY MDM BIRTHDATE: [birth year] 3. . 4. Hysterectomy. 5. Cholecystectomy. SOCIAL HISTORY: The patient is , nonsmoker lifetime. Denies history of alcohol or illicit drug use and has 9 children. FAMILY HISTORY: The patient's father at age of 7979 years old, complication of silicosis. Mother at the age of 7878 years old from unknown medical illnesses. MEDICATIONS: From home with the patient, listed at the time of admission on 02/19/2017 were noted as use of vitamin B12, albuterol sulfate via nebulizer, Symbicort 160/4.5 two puffs b.i.d., Flonase 1 spray each nostril b.i.d., 2 liters nasal cannula oxygen supplementation, vitamin D3 4000 international units, Digitek 125 mcg daily. 1. Vicodin p.r.n. use. 2. Synthroid 50 mcg daily. 3. Ativan 0.5 mg q.8h. p.r.n. for agitation. 4. Remeron 50 mg at bedtime. 4. Singulair 10 mg daily. 5. Coumadin 5 mg p.o. daily. ALLERGIES: The patient noted as allergy to: 1. SULFA DRUGS. 2. MACROBID. PHYSICAL EXAMINATION: GENERAL: An 86-year-old female who has been noted currently awake and alert without any distress. Height of 5 feet 1 inch, weight of 103 pounds, BMI 19.5. VITAL SIGNS: The patient showed normal temperature, respiratory rate 19-20, heart rate of 75-81, blood pressure 113/61-108/82. Pulse oxygen saturation on 2 liters nasal cannula 95% saturation recorded. HEENT: Examination shows head was atraumatic. Eyes nonicterus. NECK: Supple. CARDIOVASCULAR: S1, S2 is audible. LUNGS: The patient was noted with expiratory crackles, which has noted chronic finding with drqr-jw-wkftaral expiratory wheezing. ABDOMEN: Soft, nontender. Bowel sounds present. CENTRAL NERVOUS SYSTEM: Cranial nerves 2-12 intact. No focal deficits. MUSCULOSKELETAL: No deformities. SKIN: No lesions or rashes. LABORATORY DATA: CBC that were done on 02/19 on admission, WBC count of 10.8, hemoglobin 12.4, hematocrit 40.3, platelet count 322,000, normal differential. Lactic acid 0.9 on 02/19/2017. The PT/INR 2.1 on admission, which is therapeutic. CMP on admission 02/19 normal. BUN and creatinine, sodium 135, remaining CMP normal. Troponin 3 sets in 24 hours after admission, noted normal. CBC remains with a normal WBC count, mild anemia noted on 02/20/2017 as hemoglobin 10. CMP was noted normal BUN and creatinine. The patient has CBC of [place], [place] REPORT OF CONSULTATION NAME: WILIAN RIOS UNIT #: [id number] ROOM: 427 DO[facility]: [birth year] this morning, which has been noted with further decrease of hemoglobin mildly hemoglobin 9.9, hematocrit 32.2, platelet count and WBC count were normal. CMP on 02/21 was noted as normal BUN and creatinine. PT/INR today was noted 1.8, which is subtherapeutic. The blood culture from 02/19 on admission shows no bacterial growth. Urine culture, no bacterial growth noted from the 2nd of this month. Echocardiogram was done on this admission on 02/20/2017 was reported with findings of normal left ventricular function. The patient without any acute abnormalities. The echocardiogram was assessed by Dr. Black. IMPRESSION: It was noted essentially normal. The chest x-ray 1 view, which were done on 02/19/2017 was reviewed shows evidence of baseline interstitial pulmonary fibrosis. The patient was noted, difficult to exclude any pneumonia. The patient because of current baseline pulmonary abnormality. Chest x-ray 2-view that was done this morning, the patient was reviewed, shows infiltration noted with decreased volume. The patient on the left side with possibility of acute infiltration would be considered. Small pleural fluid cannot be completely excluded. IMPRESSION: 1. The patient who has been currently noted with abnormal findings of chest x-ray, possibility related to atelectasis, acute infiltration involving the left side with acute on chronic hypoxic respiratory failure. 2. History of chronic interstitial pulmonary fibrosis which has been known. 3. The patient with history of bronchial asthma was also noted with acute exacerbation. 4. History of recurrent urinary tract infection. 5. Elderly status with chronic protein-calorie malnutrition and poor physical performance and debility. PLAN OF MANAGEMENT: Chest x-ray that has been done requires CT scan of the chest, which can be done without contrast for a more definitive assessment for addition of pulmonary problems including assessment of atelectasis and finding remains persistent, certainly consider doing bronchoscopy. PLAN OF TREATMENT: Continue anticoagulation. Continue other previous treatment, therapy plan and management, usual care as in progress. Supportive care, other treatment and usual care. Thank you for allowing me to participate in the care of this patient. [place], [place] REPORT OF CONSULTATION NAME: WILIAN RIOS UNIT #: [id number] ROOM: [facility] DOCTOR: ROSA CORLEY MD BIRTHDATE: [birth year] ROSA BARAHONA MD CM:CONSTR:REPORT OF CONSULTATION 1656 02/21/17 1814 interface
--- NOTE | ~2017-02-19 | PR ---
[place], [place] PROGRESS NOTE NAME: WILIAN RIOS UNIT #: [id number] ROOM: 427 DOCTOR: ROSA CORLEY MD BIRTHDATE: [birth year] DOS: 02/22/2017 PULMONARY FOLLOWUP SUBJECTIVE: She has been noted no acute changes at this time. Coughing has been noted intermittently and nonproductive most of the time. There were no symptoms of chest pain. She denies symptoms of hemoptysis. OBJECTIVE: VITAL SIGNS: Recorded as a normal temperature, respiratory rate 20, heart rate 62, blood pressure 141/65. Intake 770, output 1500 mL. Pulse oxygen saturation on 2 liters nasal cannula 100% saturation. HEENT: Showed no acute change. NECK: Supple. CARDIOVASCULAR: S1, S2 audible. LUNGS: Without any crackles which were new. Inspiratory scattered crackles noted in the lungs bilaterally. ABDOMEN: Soft, nontender. LABORATORY DATA: INR today noted 2.[address] scan of the chest that was completed this morning was reviewed and shows atelectasis with partially the left upper and left lower lobe secondary to possible mucus impaction, bilateral interstitial pulmonary fibrosis without any acute infiltration. IMPRESSION: 1. Mucus impaction with area of atelectasis, possibility of pneumonia, suspected in the left lung. 2. Acute on chronic hypoxic respiratory failure with exacerbation of bronchial asthma. PLAN OF MANAGEMENT: Discontinuation of the Coumadin for this patient at this time. PLAN: Bronchoscopy, possibly on Friday. Continuation of bronchodilators. Incentive spirometry, continuation of antibiotics and other treatment plan and management. Usual care and the supportive therapy, plan of care. [place], [place] PROGRESS NOTE NAME: WILIAN RIOS UNIT #: [id number] ROOM: 427 DOCTOR: ROSA CORLEY MD BIRTHDATE: [birth year] ROSA BARAHONA MD CM:PNTRANS [id number] ROSA TOLENTINO MD 02/24/17 0355 interface
--- NOTE | ~2017-02-19 | PROC NOTE ---
[place], [place] PROCEDURE NOTE [id number] UN[facility] #: [id number] ROOM: 427 DOCTOR: JUN TOLENTINO MD,ROSA BIRTHDATE: [birth year] DOS: 02/24/2017 PREOPERATIVE DIAGNOSIS: Severe coughing in the patient, which was noted nonproductive and atelectasis, left upper and the left lower lobe. POSTOPERATIVE DIAGNOSES: Severe coughing in the patient, which was noted nonproductive and atelectasis, left upper and the left lower lobe. PROCEDURE DESCRIPTION: Informed consent obtained for the patient. The patient brought to the OR and placed in supine position. Conscious sedation was administered by the Anesthesia Department. After that, the bronchoscope advanced to the airway into laryngeal area. Epiglottis and vocal cords were seen. Vocal cord noted yellowish in color moving symmetrical in movement. Bronchus, the vocal cords and tracheal lumen showed moderate amount of thick mucus secretion suctioned out. Kim noted sharp. Large plugs of the mucus noted 4 cm or 5 cm long for this patient were pruned out from the left upper and the left lower lobe bronchi. Right middle lobe bronchus was also obstructed with a large thick mucus plug. Bronchial washings sent for all the culture. Procedure well tolerated by the patient without any complications. The post-operative diagnoses were discussed and the findings were discussed with the patient's family members in the recovery room. ROSA BARAHONA MD CM:PROCNOTE:PROCEDURE NOTE [id number] ROSA TOLENTINO MD
--- NOTE | ~2017-02-19 | PR ---
[place], [place] PROGRESS NOTE NAME: WILIAN RIOS UNIT #: [id number] ROOM: 427 DOCTOR: ROSA CORLEY MD BIRTHDATE: [birth year] DOS: 02/26/2017 PULMONARY FOLLOWUP SUBJECTIVE: She continued to do very well from current medical management. Bronchoscopy was done for patient a couple of days ago with a copious amount of very large plugs of the mucus were removed from endobronchial tree bilaterally without any difficulty. The cough has been noted minimal at this time. There was no shortness of breath at rest. OBJECTIVE: VITAL SIGNS: Normal temperature, respirations 18, heart rate 62, blood pressure 138/60-127/70. Pulse oxygen saturation on 2 liters nasal cannula 99% saturation. HEENT: Showed no new change. NECK: Supple. CARDIOVASCULAR: S1, S2 audible. LUNGS: Noted clear of any wheezing or crackles. ABDOMEN: Soft, nontender. LABORATORY DATA: Culture of the bronchial washing shows having growth of yeast. INR today was noted 1.6. The chest x-ray, PA and lateral view that I ordered for this patient this morning was reviewed, shows evidence of chronic interstitial pulmonary fibrosis. The patient was noted with improvement in aeration of the lung in the left side. IMPRESSION: 1. Resolution of the area of atelectasis left upper lobe as well as the left lower lobe. 2. Chronic interstitial pulmonary fibrosis. 3. Resolving thugr-qf-fksxdxl hypoxic respiratory failure progressively. PLAN OF TREATMENT: From the pulmonary standpoint, the patient could be discharged home whenever desired on oral medications and tapering dose of prednisone. Continuation in the meantime other therapy, plan and management and care. Usual treatment and other therapies. [place], [place] PROGRESS NOTE NAME: WILIAN RIOS UNIT #: [id number] ROOM: 427 DOCTOR: ROSA CORLEY MD BIRTHDATE: [birth year] ROSA BARAHONA MD CM:PNTRANS [id number] ROSA TOLENTINO MD 02/26/17 1033 interface
--- NOTE | ~2017-02-19 | PR ---
[place], [place] PROGRESS NOTE NAME: WILIAN RIOS UNIT #: [id number] ROOM: 427 DOCTOR: ROSA CORLEY MD BIRTHDATE: [birth year] DOS: 02/25/2017 PULMONARY FOLLOWUP SUBJECTIVE: The patient has been noted comfortable with large multiple plugs of mucus were removed from the endobronchial tree yesterday. She has been noted without any symptoms of chest pain, coughing has been noted mild. She resumed on his anticoagulation from yesterday. OBJECTIVE: VITAL SIGNS: Normal temperature, respiratory rate 18, heart rate 61, blood pressure 130/59. The pulse oxygen saturation of the patient recorded on 2 liters nasal cannula is 99% saturation. HEENT: Examination shows head was atraumatic. Eyes nonicterus. NECK: Supple. CARDIOVASCULAR: S1, S2 is audible. LUNGS: The patient was noted with occasional wheezing. ABDOMEN: Soft, nontender. EXTREMITIES: Show no edema, clubbing or cyanosis. LABORATORY DATA: Cultures of the bronchial washing of the patient from yesterday was noted with growth of yeast and normal aidee. IMPRESSION: 1. The patient with area of atelectasis with acute on chronic hypoxic respiratory failure with acute exacerbation of bronchial asthma, possibility of pneumonia. The patient also considered superimposed. 2. Chronic anticoagulation, currently noted subtherapeutic as Coumadin was discontinued temporarily. INR today was noted 1.3. PLAN OF TREATMENT: No changes in the use of bronchodilators, reduce the Solu-Medrol to 40 mg b.i.d. Monitor culture results. Repeat chest x-ray in the morning for patient was ordered for reassessment. Consider discontinuation of the vancomycin and Zosyn. Continue with the Levaquin for this patient. Further adjustment in the medication to be done based on the progression of the illness and monitoring of the culture results. Supportive care. Other therapy, plan of management. Usual care. [place], [place] PROGRESS NOTE NAME: WILIAN RIOS UNIT #: [id number] ROOM: 427 DOCTOR: ROSA CORLEY MD BIRTHDATE: [birth year] ROSA BARAHONA MD CM:PNTRANS 1117 ROSA TOLENTINO MD 02/25/17 1129 interface
[~2017-02-19 11:20] MED LIST changes: +MUCINEX ER600 MG PO; +OXYGEN NAS; +REMERON15 M2 PO
[2017-02-19 11:57] LABS: BASO % 0.4 % (0.0-1.0); EOS # 0.9 10*3/uL (0.0-0.4); EOS % 8.4 % (1.0-4.0); HEMATOCRIT 40.3 % (37.0-47.0); HEMOGLOBIN 12.4 g/dl (12.0-16.0); LYMPH # 2.6 10*3/uL (1.3-4.4); MEAN CELL VOLUME 78.3 fl (81.0-99.0); MEAN CORPUSCULAR HGB 24.1 pg (27.0-31.0); MEAN CORPUSCULAR HGB CONC 30.8 g/dl (33.0-37.0); MONO # 0.7 10*3/uL (0.1-1.0); MONO % 6.7 % (3.0-9.0); NEUT # 6.5 10*3/uL (2.3-7.9); NEUT % 60.1 % (47.0-73.0); PLATELET COUNT AUTOMATED 322 10*3/uL (130-400); RED BLOOD COUNT 5.15 10*6/uL (4.10-5.10); RED CELL DISTRI WIDTH 17.7 % (0-14.5); WHITE BLOOD COUNT 10.8 10*3/uL (4.8-10.8)
[2017-02-19 12:07] LABS: INTERNATIONAL NORM RATIO 2.1 (2.0-3.5); PROTHROMBIN TIME 23.7 SECONDS (9.0-12.4)
[2017-02-19 12:14] LABS: ALBUMIN 3.3 gm/dl (3.1-4.5); ALKALINE PHOSPHATASE 90 U/L (45-117); BILIRUBIN, TOTAL 0.3 mg/dl (0.2-1.0); BUN 7 mg/dl (7-24); C-REACTIVE PROTEIN 0.35 MG/DL (0-0.3); CARBON DIOXIDE 28 mmol/L (21-32); CHLORIDE 100 mmol/L (98-107); EST GLOM FILT AFRICAN AMERICAN > 60 ml/min; GLUCOSE 95 mg/dL (65-99); MAGNESIUM 2.1 mg/dL (1.5-2.1); POTASSIUM 4.1 mmol/L (3.5-5.1); SGOT/AST 17 IU/L (3-35); SGPT/ALT 13 U/L (12-78); SODIUM 135 mmol/L (136-145); TOTAL PROTEIN 7.6 gm/dL (6.4-8.2)
[2017-02-19 12:22] LABS: TROPONIN I < 0.015 ng/ml (<0.045)
[2017-02-19 15:13] LABS: BILIRUBIN NEGATIVE (NEGATIVE); BLOOD 1+ (NEGATIVE); CLARITY SL CLOUDY (CLEAR); COLOR YELLOW (YELLOW); GLUCOSE NEGATIVE (NEGATIVE); KETONE 1+ (NEGATIVE); LEUKO ESTERASE 3+ (NEGATIVE); NITRITE POSITIVE (NEGATIVE); PH 5.5 (5.0-9.0); PROTEIN NEGATIVE (NEGATIVE); UROBILINOGEN 0.2 E.U./dl (0.2-1.0)
[2017-02-19 15:20] LABS: BACTERIA 1+; WBC 31-40 wbc/hpf (0-5)
[2017-02-19 15:21] LABS: URINE REFLEX COMMENT YES (NO)
[2017-02-19] MEDS ORDERED: COUMADIN5 M2 PO (15:21)
[2017-02-19] MEDS ORDERED: VITAMIN D34000 UNIT PO (15:23)
[2017-02-19] MEDS ORDERED: HYDROCODONE BIT1 T11 PO (15:27)
[2017-02-20] VITALS: BP 111/70
[2017-02-20 06:45] LABS: HEMATOCRIT 35.5 % (37.0-47.0); HEMOGLOBIN 10.8 g/dl (12.0-16.0); IG # 0.1 10*3/uL (0.0-0.1); LYMPH # 1.5 10*3/uL (1.3-4.4); LYMPH % 24.4 % (27.0-41.0); MEAN CELL VOLUME 77.7 fl (81.0-99.0); MEAN CORPUSCULAR HGB 23.6 pg (27.0-31.0); MEAN CORPUSCULAR HGB CONC 30.4 g/dl (33.0-37.0); MEAN PLATELET VOLUME 8.7 fl (9.6-12.3); MONO # 0.5 10*3/uL (0.1-1.0); MONO % 7.9 % (3.0-9.0); NEUT # 4.1 10*3/uL (2.3-7.9); NEUT % 66.9 % (47.0-73.0); PLATELET COUNT AUTOMATED 270 10*3/uL (130-400); RED BLOOD COUNT 4.57 10*6/uL (4.10-5.10); RED CELL DISTRI WIDTH 17.4 % (0-14.5); WHITE BLOOD COUNT 6.1 10*3/uL (4.8-10.8)
[2017-02-20 06:59] LABS: ALBUMIN 2.8 gm/dl (3.1-4.5); ALKALINE PHOSPHATASE 74 U/L (45-117); BILIRUBIN, TOTAL 0.3 mg/dl (0.2-1.0); BUN 7 mg/dl (7-24); CARBON DIOXIDE 24 mmol/L (21-32); CHLORIDE 104 mmol/L (98-107); EST GLOM FILT AFRICAN AMERICAN > 60 ml/min; GLUCOSE 112 mg/dL (65-99); PHOSPHOROUS 3.2 mg/dL (2.5-4.9); POTASSIUM 3.7 mmol/L (3.5-5.1); SGOT/AST 17 IU/L (3-35); SGPT/ALT 10 U/L (12-78); SODIUM 136 mmol/L (136-145); TOTAL PROTEIN 6.3 gm/dL (6.4-8.2)
[2017-02-20 08:00] VITALS: BP 129/88
[2017-02-20 12:00] VITALS: BP 113/61
[2017-02-20 16:00] VITALS: BP 115/66
[2017-02-20 20:00] VITALS: BP 101/57
[2017-02-21] VITALS: BP 106/69
[2017-02-21 07:17] LABS: HEMATOCRIT 32.2 % (37.0-47.0); HEMOGLOBIN 9.9 g/dl (12.0-16.0); LYMPH # 1.6 10*3/uL (1.3-4.4); LYMPH % 23.9 % (27.0-41.0); MEAN CELL VOLUME 77.8 fl (81.0-99.0); MEAN CORPUSCULAR HGB 23.9 pg (27.0-31.0); MEAN CORPUSCULAR HGB CONC 30.7 g/dl (33.0-37.0); MEAN PLATELET VOLUME 9.4 fl (9.6-12.3); MONO # 0.3 10*3/uL (0.1-1.0); MONO % 3.9 % (3.0-9.0); NEUT # 4.7 10*3/uL (2.3-7.9); NEUT % 71.6 % (47.0-73.0); PLATELET COUNT AUTOMATED 268 10*3/uL (130-400); RED BLOOD COUNT 4.14 10*6/uL (4.10-5.10); RED CELL DISTRI WIDTH 17.4 % (0-14.5); WHITE BLOOD COUNT 6.6 10*3/uL (4.8-10.8)
[2017-02-21 07:31] LABS: ALBUMIN 2.5 gm/dl (3.1-4.5); CEA 6.1 ng/mL; CHLORIDE 107 mmol/L (98-107); POTASSIUM 3.5 mmol/L (3.5-5.1); SODIUM 139 mmol/L (136-145)
[2017-02-21 07:42] LABS: ALKALINE PHOSPHATASE 61 U/L (45-117); BILIRUBIN, TOTAL 0.3 mg/dl (0.2-1.0); BUN 7 mg/dl (7-24); CARBON DIOXIDE 23 mmol/L (21-32); DIGOXIN 0.45 ng/ml (0.8-2.0); EST GLOM FILT AFRICAN AMERICAN > 60 ml/min; FREE T4 0.91 ng/dl (0.76-1.46); GLUCOSE 99 mg/dL (65-99); IRON 15 ug/dL (50-170); IRON SATURATION 5 %; SGOT/AST 14 IU/L (3-35); SGPT/ALT 9 U/L (12-78); TOTAL PROTEIN 5.9 gm/dL (6.4-8.2); UIBC 283 ug/dL (110-365)
[2017-02-21 08:00] VITALS: BP 113/58
[2017-02-21 08:01] LABS: INTERNATIONAL NORM RATIO 1.8 (2.0-3.5); PROTHROMBIN TIME 20.3 SECONDS (9.0-12.4)
[2017-02-21 12:00] VITALS: BP 108/82
[2017-02-21 16:00] VITALS: BP 120/76
[2017-02-21 20:00] VITALS: BP 105/55
[2017-02-22] VITALS: BP 119/62
[2017-02-22 06:42] LABS: INTERNATIONAL NORM RATIO 2.5 (2.0-3.5); PROTHROMBIN TIME 27.8 SECONDS (9.0-12.4)
[2017-02-22 08:00] VITALS: BP 141/65
[2017-02-22 12:00] VITALS: BP 123/79
[2017-02-22 16:00] VITALS: BP 106/62
[2017-02-22 20:00] VITALS: BP 114/57
[2017-02-23] VITALS: BP 122/61
[2017-02-23 06:15] LABS: BASO % 0.1 % (0.0-1.0); HEMATOCRIT 35.8 % (37.0-47.0); HEMOGLOBIN 10.9 g/dl (12.0-16.0); IG # 0.1 10*3/uL (0.0-0.1); LYMPH # 1.1 10*3/uL (1.3-4.4); LYMPH % 16.3 % (27.0-41.0); MEAN CELL VOLUME 78.5 fl (81.0-99.0); MEAN CORPUSCULAR HGB 23.9 pg (27.0-31.0); MEAN CORPUSCULAR HGB CONC 30.4 g/dl (33.0-37.0); MEAN PLATELET VOLUME 9.2 fl (9.6-12.3); MONO # 0.2 10*3/uL (0.1-1.0); MONO % 3.6 % (3.0-9.0); NEUT # 5.3 10*3/uL (2.3-7.9); NEUT % 79.1 % (47.0-73.0); PLATELET COUNT AUTOMATED 281 10*3/uL (130-400); RED BLOOD COUNT 4.56 10*6/uL (4.10-5.10); RED CELL DISTRI WIDTH 17.8 % (0-14.5); WHITE BLOOD COUNT 6.7 10*3/uL (4.8-10.8)
[2017-02-23 06:38] LABS: INTERNATIONAL NORM RATIO 2.5 (2.0-3.5); PROTHROMBIN TIME 27.8 SECONDS (9.0-12.4)
[2017-02-23 08:00] VITALS: BP 134/60
[2017-02-23 12:00] VITALS: BP 140/70
[2017-02-23 16:00] VITALS: BP 125/56
[2017-02-23 20:00] VITALS: BP 118/53
[2017-02-24] VITALS (9 sets, daily range): BP systolic 119–145; BP diastolic 51–75
[2017-02-24 05:11] LABS: BUN 12 mg/dl (7-24); EST GLOM FILT AFRICAN AMERICAN > 60 ml/min
[2017-02-24 06:03] LABS: BASO % 0.1 % (0.0-1.0); HEMATOCRIT 33.1 % (37.0-47.0); HEMOGLOBIN 10.4 g/dl (12.0-16.0); IG # 0.1 10*3/uL (0.0-0.1); LYMPH # 1.1 10*3/uL (1.3-4.4); LYMPH % 14.6 % (27.0-41.0); MEAN CELL VOLUME 78.4 fl (81.0-99.0); MEAN CORPUSCULAR HGB 24.6 pg (27.0-31.0); MEAN CORPUSCULAR HGB CONC 31.4 g/dl (33.0-37.0); MEAN PLATELET VOLUME 9.2 fl (9.6-12.3); MONO # 0.4 10*3/uL (0.1-1.0); MONO % 5.5 % (3.0-9.0); NEUT # 5.7 10*3/uL (2.3-7.9); NEUT % 78.6 % (47.0-73.0); PLATELET COUNT AUTOMATED 268 10*3/uL (130-400); RED BLOOD COUNT 4.22 10*6/uL (4.10-5.10); RED CELL DISTRI WIDTH 17.8 % (0-14.5); WHITE BLOOD COUNT 7.3 10*3/uL (4.8-10.8)
[2017-02-24 06:16] LABS: INTERNATIONAL NORM RATIO 1.6 (2.0-3.5); PROTHROMBIN TIME 17.8 SECONDS (9.0-12.4)
[2017-02-25] VITALS: BP 131/80
[2017-02-25 06:32] LABS: INTERNATIONAL NORM RATIO 1.3 (2.0-3.5); PROTHROMBIN TIME 13.9 SECONDS (9.0-12.4)
[2017-02-25 08:00] VITALS: BP 130/59
[2017-02-25 12:00] VITALS: BP 116/46
[2017-02-25 16:00] VITALS: BP 119/52
[2017-02-25 16:11] LABS: ACID FAST SPEC PROCESSING Concentration (.)
[2017-02-25 19:51] VITALS: BP 139/62
[2017-02-26] VITALS: BP 127/70
[2017-02-26 06:13] LABS: INTERNATIONAL NORM RATIO 1.6 (2.0-3.5)
[2017-02-26 08:00] VITALS: BP 138/62
[2017-02-26] MEDS ORDERED: PREDNISONE50 MG PO (11:29)
[2017-02-26] MEDS ORDERED: LEVAQUIN500 M2 PO (11:29)
[2017-02-26 12:00] VITALS: BP 127/66
== END 2017-02-26 13:45 | disposition home health service (06) | DRG 871 ==
LOC: ED 11:20 → 4E 13:05 → EDHOLD 13:05 → 4E 13:45
PROVIDERS: Family Medicine; Internal Medicine; Internal Medicine Critical Care Medicine; Internal Medicine Hospice and Palliative Medicine; Registered Nurse; Student in an Organized Health Care Education/Training Program
PROC: 0BBB8ZX Excision of Left Lower Lobe Bronchus, Via Natural or Artificial Opening Endoscopic, Diagnostic (ICD-10-PCS; principal; 2017-02-24)
PROC: 0BB88ZX Excision of Left Upper Lobe Bronchus, Via Natural or Artificial Opening Endoscopic, Diagnostic (ICD-10-PCS; principal; 2017-02-24)
PROC: 0BB58ZX Excision of Right Middle Lobe Bronchus, Via Natural or Artificial Opening Endoscopic, Diagnostic (ICD-10-PCS; principal; 2017-02-24)
DX: A41.9 Sepsis, unspecified organism (principal); J18.9 Pneumonia, unspecified organism; J96.21 Acute and chronic respiratory failure with hypoxia; E43 Unspecified severe protein-calorie malnutrition; D68.59 Other primary thrombophilia; J44.0 Chronic obstructive pulmonary disease with (acute) lower respiratory infection; I50.32 Chronic diastolic (congestive) heart failure; J84.10 Pulmonary fibrosis, unspecified; J45.901 Unspecified asthma with (acute) exacerbation; E87.1 Hypo-osmolality and hyponatremia; J44.1 Chronic obstructive pulmonary disease with (acute) exacerbation; Z68.1 Body mass index [BMI] 19.9 or less, adult; Z66 Do not resuscitate; Z51.5 Encounter for palliative care; K21.9 Gastro-esophageal reflux disease without esophagitis; E03.9 Hypothyroidism, unspecified; I48.0 Paroxysmal atrial fibrillation; D72.810 Lymphocytopenia; R65.20 Severe sepsis without septic shock; F41.1 Generalized anxiety disorder; D50.9 Iron deficiency anemia, unspecified; Z96.1 Presence of intraocular lens; G89.29 Other chronic pain; M54.5 Low back pain; Z99.81 Dependence on supplemental oxygen; Z98.42 Cataract extraction status, left eye; Z98.41 Cataract extraction status, right eye; Z79.51 Long term (current) use of inhaled steroids; Z79.01 Long term (current) use of anticoagulants; Z79.899 Other long term (current) drug therapy; Z85.038 Personal history of other malignant neoplasm of large intestine; Z90.49 Acquired absence of other specified parts of digestive tract; Z90.710 Acquired absence of both cervix and uterus; Z88.2 Allergy status to sulfonamides; Z88.1 Allergy status to other antibiotic agents; Z91.048 Other nonmedicinal substance allergy status; Y95 Nosocomial condition

== ENCOUNTER 2017-04-03 08:22 | Inpatient (IN) | payer MEDICARE, BC ==
[~2017-04-03] VITALS: Ht 154.9 cm; Wt 50.3 kg
[2017-04-03] VITALS (11 sets, daily range): BP systolic 102–134; BP diastolic 54–66
--- NOTE | ~2017-04-03 | PR ---
[place], [place] PROGRESS NOTE NAME: WILIAN RIOS UNIT #: [id number] ROOM: 532 DOCTOR: ROSA CORLEY MD BIRTHDATE: [birth year] DOS: 04/07/2017 SUBJECTIVE: She has been noted comfortable. Coughing has been noted, but not able to expectorate sputum. Denies symptoms of chest pain or any abdominal pain. The patient's shortness of breath has been noted essentially stable. OBJECTIVE: VITAL SIGNS: Shows normal temperature, respiratory rate 20, heart rate 71, blood pressure 144/77. Intake for the patient is 1370 mL, output were not recorded. Pulse oxygen saturation on 2 liters nasal cannula 99% saturation. HEENT: Chronic obesity. NECK: Supple. CARDIOVASCULAR: S1, S2 audible. LUNGS: Shows inspiratory crackles with scattered wheezing. Decreased breath sounds in the lower portion of the lungs. ABDOMEN: Soft, nontender. LABORATORY DATA: INR today was noted as 1.7. BMP was noted as normal BUN and creatinine. CBC this morning, hemoglobin 10.3, hematocrit 34.1 and platelet counts were normal. Chest x-ray 2 views, PA lateral view, which was obtained shows area of infiltration and atelectasis in the left lower lobe noted with minimal improvement. IMPRESSION: 1. The patient with history of atrial fibrillation. 2. Acute urinary tract infection. 3. Acute pneumonia. 4. Acute on chronic hypoxic respiratory failure secondary to acute pneumonia suspected from Pseudomonas aeruginosa as well as the organisms were isolated from the urine as well. Subtherapeutic anticoagulation. PLAN OF MANAGEMENT: Bronchoscopy was planned to be done for this patient, possibly on Friday. At this time, the patient will be continued on anticoagulation. It might need to hold off the anticoagulation tomorrow for the bronchoscopy if it will be done on Friday. In the meantime, continue other noninvasive treatment to help mobilize secretions, improving the respiratory secretion clearance. Usual care, other supportive plan of management and care. Other therapies as in progress. [place], [place] PROGRESS NOTE NAME: WILIAN RIOS UNIT #: [id number] ROOM: 532 DOCTOR: RSOA CORLEY MD BIRTHDATE: [birth year] ROSA BARAHONA MD CM:PNTRANS [phone] ROSA TOLENTINO MD 04/08/17 0844 interface
--- NOTE | ~2017-04-03 | EKG ---
[place], [place] ELECTROCARDIOGRAM REPORT NAME: WILIAN RIOS UNIT #: [id number] ROOM: 532 DOCTOR: JUN TOLENTINO MD,ROSA BIRTHDATE: [birth year] DOS: 04/03/2017 ELECTROCARDIOGRAM REPORT TIME OF EK Hours. The normal sinus rhythm was noted in the patient with a heart rate of 87 beats per minute. There was no cardiac arrhythmias noted although the inferior myocardial infarction was suspected. No specific ST-T wave changes were noted in the remaining limb and the chest leads. ROSA BARAHONA MD CM:EKGRPT:ELECTROCARDIOGRAM REPORT [id number] ROSA TOLENTINO MD
--- NOTE | ~2017-04-03 | PROC NOTE ---
[place], [place] PROCEDURE NOTE [id number] UN[facility] #: [id number] ROOM: 532 DOCTOR: UJN TOLENTINO MD,ROSA BIRTHDATE: [birth year] DOS: 04/09/2017 PREOPERATIVE DIAGNOSES: The patient persistent area of atelectasis ongoing symptoms, nonresolving with persistent cough and wheezing with maximum medical therapy. POSTOPERATIVE DIAGNOSES: Removal of a large plugs of the mucus. The patient had endobronchial tree bilaterally. PROCEDURE DESCRIPTION: Informed consent obtained for the patient. The patient was brought to the OR and placed in supine position. Conscious sedation administered by the Anesthesia Department after achieving appropriate sedation, airway introduced into the mouth. Bronchoscope was advanced to the airway into laryngeal area. Epiglottis and vocal cords were seen. The bronchoscope advanced to the vocal cords and tracheal lumen. The tracheal lumen was identified. Tracheal lumen noted with moderate amount of thick mucus secretion, which was suctioned out with the help of normal saline wash. The ann marie was noted sharp. Large plugs of the mucus was causing significant impaction of the endobronchial tree bronchial openings bilaterally. The plugs noted much larger in ____ the left and the right side. Right upper, right middle, right lower, left lingula, left upper and lower lobe bronchi were all examined. Large plugs of the mucus up to 3 inches or greater for the patient was pulled off from the endobronchial tree bilaterally. Procedure was well tolerated by the patient without any complications. Postoperative findings were discussed with the patient's family members in detail. No complications noted after the procedure. Anticoagulation, the patient will be resumed starting today as Coumadin. Usual dose for chronic anticoagulation with history of atrial fibrillation. 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 ROSA BARAHONA MD CM:PROCNOTE:PROCEDURE NOTE [id number] ROSA TOLENTINO MD
--- NOTE | ~2017-04-03 | PR ---
[place], [place] PROGRESS NOTE NAME: WILIAN RIOS [facility] #: [id number] UNIT #: [id number] ROOM: 532 DOCTOR: JUN TOLENTINO MD,ROSA BIRTHDATE: [birth year] DOS: 04/08/2017 SUBJECTIVE: The patient was seen and examined with leps-bu-mtam encounter today. History and physical finding were confirmed. The labs were reviewed. Any change in treatment was personally made. The note done by the medical insurance clerk was approved as well. This is a patient who has been currently noted with coughing, which remained nonproductive. The patient most of this time noted with gradual reduction and improvement in the respiratory symptoms. She has been continued on antibiotics, corticosteroids, bronchodilators, Mucinex and all other previous treatments. OBJECTIVE: VITAL SIGNS: Recorded, showed temperature noted as normal, respiratory rate was recorded as 18, heart rate 73, blood pressure 146/63. HEENT: Unchanged from previously. CARDIOVASCULAR: S1, S2 audible. LUNGS: Noted without any wheezing. Crackles were noted in the lower portion of the lungs bilaterally. ABDOMEN: Soft, flat, nontender. EXTREMITIES: Show no edema. LABORATORY DATA: INR was done this morning noted subtherapeutic at 1.3. Blood cultures, no bacterial growth from 04/03/2017 with final results. IMPRESSION: The patient who has been currently noted with recurrent area of atelectasis left lower lobe with ongoing acute exacerbation of bronchial asthma, acute pneumonia, urinary tract infection and other problem. She was planned for the bronchoscopy to be done tomorrow, n.p.o. past midnight status will be achieved. The patient will remain off anticoagulation until after the bronchoscopy. ROSA BARAHONA MD CM:PNTRANS [id number] ROSA TOLENTINO MD 04/09/17 0330 interface
--- NOTE | ~2017-04-03 | CON ---
[place], [place] REPORT OF CONSULTATION NAME: WILIAN RIOS UNIT #: [id number] ROOM: 532 DOCTOR: ANGUS GA DO BIRTHDATE: [birth year] DOS: 04/04/2017 ATTENDING PHYSICIAN: Dr. Barahona. REASON FOR CONSULTATION: Mucus plugging with shortness of breath. CHIEF COMPLAINT: Shortness of breath. HISTORY OF PRESENT ILLNESS: This is an 86-year-old female who presents to [facility] with [facility] for chief complaint of shortness of breath. The patient is from home and lives at home with her son. The patient was noted to be short of breath yesterday morning with pulse ox of 82% on 4 liters home oxygen. The patient usually uses 2 liters of home oxygen. Per the patient's son, this has been going on for 5 days and her shortness of breath has been gradually worsening. The patient also complains of productive cough with thick sputum and confusion. HPI is otherwise limited due to clinical condition. PAST MEDICAL HISTORY: COPD, GERD, hypercoagulable state, paroxysmal AFib, depression, asthma, anxiety, hypothyroid. PAST SURGICAL HISTORY: History of bronch, , right hemicolectomy, cataract extraction, cholecystectomy, hysterectomy. SOCIAL HISTORY: The patient lives with her son at home. The patient denies any smoking or drinking alcohol or illicit drug use. FAMILY HISTORY: Father , at age of 79 due to unknown causes. Mother at age of 78 due to unknown causes. REVIEW OF SYSTEMS: RESPIRATORY: The patient reports short of breath, cough, wheezing and sputum production. GENERAL: Denies weight loss, fever, chills, weight gain. HEENT: Denies vision changes. Reports earache on the right ear, more than left. Denies ear ____. CARDIOVASCULAR: Denies lower extremity edema, chest pain, palpitation0. ABDOMINAL: Denies abdominal pain, nausea, vomiting, diarrhea, constipation, melena, hematemesis or loss of appetite. GENITOURINARY: Denies dysuria, hematuria, decreasing frequency or increasing frequency or urgency. NEUROLOGIC: Denies lightheadedness, dizziness or confusion. PSYCHIATRIC: Denies anxiety, depression or substance abuse. ENDOCRINE: Denies rashes, ulcers or lesions. SKIN: No skin lesions noted. PHYSICAL EXAMINATION: VITAL SIGNS: Temperature 97.8, pulse of 73, respiratory rate 19, blood pressure 123/66, pulse ox of 91 on 2 liters of nasal cannula. GENERAL APPEARANCE: Alert, awake, mild distress due to right ear pain. HEAD: Normocephalic, atraumatic. EYES: No lesion. No ulcer. Nonicteric. No drainage. [place], [place] REPORT OF CONSULTATION NAME: WILIAN RIOS UNIT #: [id number] ROOM: [facility] DOCTOR: ANGUS GA DO BIRTHDATE: [birth year] ENT: No lesion. No scar. No masses. Nasal mucosa and oral mucosa are moist. HEART: Regular rate and rhythm. No gallop. No murmur. No lower extremity edema noted. LUNGS: No respiratory distress. Cough, sputum production, mild expiratory wheezing noted. No rales or rhonchi. ABDOMEN: Soft, positive bowel sounds. No hernia. No hepatosplenomegaly. No masses. No rebound tenderness. EXTREMITIES: No clubbing, erythema, edema or cyanosis. NEUROLOGIC: No focal neurological deficit. PSYCHOLOGICAL: Poor historian. SKIN: Warm and dry. No rashes. No ulceration. LABORATORY DATA: White cell count 11.5, hemoglobin 11, platelet count 225. Chemistry: Sodium of 134, BUN 11, creatinine 0.82, glucose of 100. INR of 1.6. Urine protein 3+, urine blood 3+, urine nitrite positive, urine leukocyte esterase about 3. Blood cultures are pending to date. IMAGING: Chest x-ray done on 04/03/2017 showed COPD, fibrosis, left lower lobe infiltrate. CT chest done on 04/03/2017, no interval change in the appearance of the chest. There is atelectasis, collapse in the left lower lobe with mucus plugging of bronchi, mediastinal shift to the left is noted, extensive amount of chronic parenchymal and interstitial scarring bilaterally, compression deformity with greater degree involving T12, but no change. ASSESSMENT AND PLAN: 1. Please refer to Dr. Barahona's note for further assessment and plan. 2. Continue current management. 3. Possible bronch on Friday if the cough and shortness of breath does not resolve. Thank you for the consult. ANGUS GA DO ROSA BARAHONA MD CM:CONSTR:REPORT OF CONSULTATION 6 04/04/17 1438 interface
--- NOTE | ~2017-04-03 | CON ---
[place], [place] REPORT OF CONSULTATION NAME: WILIAN RIOS [facility] #: [id number] UNIT #: [id number] ROOM: 532 DOCTOR: ROSA CORLEY MD BIRTHDATE: [birth year] DOS: 04/04/2017 ADDENDUM TO THE CONSULTATION The patient was independently seen with [id number] encounter. History was personally taken from the patient; physical examination performed as well. All other labs of the patient were reviewed for the patient personally as well. Any changes in the assessment of the management of the patient, which were made for this patient were freshly done for today's assessment. The note which were done by the chief medical physicist was approved as well. REASON FOR CONSULTATION: Done for the patient's for assessment of symptoms of shortness of breath for this patient as well as for cough. HISTORY OF PRESENT ILLNESS: This is an 86-year-old white female who has been known with history of uncomplicated severe persistent bronchial asthma as well as pulmonary fibrosis; the patient with chronic hypoxic respiratory failure. The patient has been admitted to the hospital under care of the hospitalist service the patient on 04/03/2017. She was brought to the hospital. The patient was reported getting acute respiratory symptoms for the patient in the past four days as son of the patient who has assisted in the history. Shortness of breath of the patient has been noted gradually worsening with the patient. She has been taking her nebulized bronchodilator therapy, oxygen supplementation, and continued to show hypoxia. The patient was brought to the hospital by the EMS. The patient's oxygen saturation noted 82%. The patient was increased on oxygen supplementation up to 4 liters; the oxygen saturation still noted less than 90%. She was given one breathing treatment by the EMS and brought to the hospital. The patient also noted increased chest congestion and coughing, which has developed for the patient in the last few days as well. She has also reported with the urinary tract infection symptoms, which has been treated with Ceftin as an outpatient. The patient was complaining of tinnitus for this patient at this time, which has been described at the time of the assessment. She has not been able to participate for this patient and give me any history accurately. A lot of the history of the patient and majority although history was obtained from the patient after discussion with patient's son as well review of my past medical records documentation. REVIEW OF SYSTEMS: The review of system the patient has done by the chief medical physicist. PAST MEDICAL HISTORY, SOCIAL HISTORY, SURGICAL HISTORY AND FAMILY HISTORY: The patient reported rather review to be reviewed for this patient from the consultation of 02/21/2017, available medical records for the reference. All the history has been reviewed and noted, unchanged. Also make a summary of the patient's past hospitalization and assessment, the patient was treated in the hospital with acute on chronic hypoxic respiratory failure for the patient noted with acute exacerbation of chronic obstructive pulmonary disease, severe mucus impaction. The patient of the ____ with large plugs of the mucus were removed. The patient had fiberobronchoscopy performed on 02/24/2017. The culture was noted negative for any bacterial growth. The patient was subsequently [place], [place] REPORT OF CONSULTATION NAME: WILIAN RIOS UNIT #: [id number] ROOM: [facility] DOCTOR: ROSA CORLEY MD BIRTHDATE: [birth year] discharged home setting with oxygen. Continue bronchodilators and corticosteroids and other treatments. MEDICATIONS: Administered for the patient were noted use of digoxin, IV Solu-Medrol 60 mg b.i.d., vitamin D, Coumadin, Dulera, Singulair, Flonase, IV Zosyn, and other p.r.n. medications administered. DRUG ALLERGY HISTORY: The patient was reported as allergy to: 1. MACROBID. 2. SULFA DRUGS. PHYSICAL EXAMINATION: GENERAL: This 86-year-old elderly female who has been currently noted awake and alert without any acute distress at this time. The height for the patient was recorded by the nursing staff at the time of the current admission with height of 5 foot. The weight of 140 pounds. BMI 21.6. VITAL SIGNS: The vital signs reviewed for the patient's temperature patient was noted essentially normal, respiratory rate 18. Heart rate of 76-73. The blood pressure was noted at 114/61. Pulse oxygen saturation of the patient was noted on 2 liter nasal cannula 99% saturation. HEENT: Examination shows head was atraumatic. Moderate historian, senile hearing loss. NECK: Supple. CARDIOVASCULAR: S1, S2 is audible. LUNGS: The patient was noted without any crackles. Breaths are noted generally decreased with mild expiratory wheezing, [id number]-[id number]-[id number] expiratory wheezing noted bilaterally. ABDOMEN: Soft and nontender. EXTREMITIES: The patient was noted without any edema, clubbing, or cyanosis. MUSCULOSKELETAL: Shows no acute deformities. SKIN: Showed no lesions or rashes. LABORATORY DATA: Review for the patient, is the PT/INR patient noted 1.609 ___/04/03/2017. CMP 04/03/2017 on admission, was noted with glucose 100, BUN and creatinine normal, sodium 134. Remaining CMP normal. CBC of the patient of 04/03/2017, WBC count was 18.3, hemoglobin 13.4, hematocrit 42.5, platelet count was normal at 316,000 with a differential noted as 16% lymphocytes and 69% neutrophils. Urinalysis, the patient was noted with 3+ leukocyte esterase, positive nitrites and 4+ bacteria. The lactic acid yesterday was noted as 1.2 as normal. The troponin yesterday were noted normal. Troponin for this morning were noted as normal. CBC of the patient that was done for this patient on 04/04/2017 showed WBC count 11.5, hemoglobin 11, hematocrit 35.8, platelet count 225,000. BMP of the patient that was done this morning was noted essentially normal BMP. The culture of the urine heavy growth of gram-negative bacilli. The chest x-ray of the patient that was done personally reviewed from back images 04/03/2017 shows possibility of infiltration in the left lower lobe with underlying chronic pulmonary fibrosis findings. The chest CT scan for this patient that was done for the patient 03/24/2017 shows pulmonary fibrotic finding for the patient, which was noted with finding of UIP recurrent area of atelectasis. The patient in the left lower lobe was noted secondary to mucus impaction. The patient with some volume loss for this patient as well. [place], [place] REPORT OF CONSULTATION NAME: RIOSWILIAN UNIT #: [id number] ROOM: 532 DOCTOR: REJI CORLEY MDM BIRTHDATE: [birth year] IMPRESSION: 1. The patient who has been currently admitted to the hospital. The patient noted with recurrent acute on chronic hypoxic respiratory failure, progressive atelectasis of the left lower lobe with possible superimposed acute bacterial pneumonia is likely, recurrence of the mucus impaction. The patient off the care of this patient would be considered. 2. The patient with history of UIP with known as well. 3. History of recurrent urinary tract infection. 4. Tinnitus for this patient of unclear etiology. 5. Elderly status for this patient as well. 6. History of chronic anticoagulation with atrial fibrillation, known in the past as well. PLAN OF MANAGEMENT: The patient has been noted quite frail at this time and not suitable to have the bronchoscopy done this morning because of current ongoing severe illness. I would await for this patient to stabilize the respiratory status and other prior to consideration of the fiberoptic bronchoscopy as well. Continuation of the anticoagulation for the patient at this time. Continuation of the bronchodilators and oxygen supplementation with conservative treatment continuation of the current antibiotics for the patient until the culture results will be known. The steroids will be continued on current dose. Other radiation treatment in the changes in the treatment recommended based on progression of the illness. Other supportive therapy, plan of management to be continued as well. Usual care. Supportive treatment as well. Symptomatic management will be recommended. ROSA BARAHONA MD CM:CONSTR:REPORT OF CONSULTATION 1133 04/04/17 1219 interface
--- NOTE | ~2017-04-03 | PR ---
[place], [place] PROGRESS NOTE NAME: WILIAN RIOS UNIT #: [id number] ROOM: 532 DOCTOR: ROSA CORLEY MD BIRTHDATE: [birth year] DOS: 04/09/2017 SUBJECTIVE: The patient was seen with [id number] encounter for today's visit. The history was confirmed and physical examination performed. Any changes in the medical management were personally obtained for today's visit. All the labs for this patient was available were personally reviewed. Note which was done by the medical coding auditor was approved. The patient remains n.p.o. past midnight for bronchoscopy that was planned to be done today. She was still noted with severe cough, which remains nonproductive cough; however, shortness of breath and wheezing were decreasing. She remains off the anticoagulation. The patient's INR today was noted subtherapeutic. PHYSICAL EXAMINATION: VITAL SIGNS: The patient noted as normal temperature, respiratory rate 20, heart rate 64, blood pressure 146/54. The pulse oxygen saturation on nasal cannula 2 liters was noted as 95% saturation. LUNGS: The patient was noted with decreased breath sounds noted with expiratory wheezing. Occasional crackles in the left lower lung. ABDOMEN: Flat, soft, nontender. EXTREMITIES: Shows no edema. LABORATORY DATA: INR today was noted 1.1. IMPRESSION: 1. Persistent area of atelectasis. The patient with superimposed acute pneumonia. The patient with suspected Pseudomonas aeruginosa, nonaspiration 2. Urinary tract infection. 3. Stable acute on chronic hypoxic respiratory failure. 4. History of atrial fibrillation. PLAN OF TREATMENT: Proceed with bronchoscopy as planned for this patient to be done today. Any modification in treatment if necessary will be done after the bronchoscopy. Anticoagulation might be resumed for this patient after bronchoscopy. There will be no bleeding with current procedure. Other supportive therapy, plan of management care and plan. The note which was done by the medical coding auditor, was approved. [place], [place] PROGRESS NOTE NAME: WILIAN RIOS UNIT #: [id number] ROOM: 532 DOCTOR: ROSA CORLEY MD BIRTHDATE: [birth year] ROSA BARAHONA MD CM:PNTRANS 1312 ROSA TOLENTINO MD 04/10/17 0449 interface
--- NOTE | ~2017-04-03 | PR ---
[place], [place] PROGRESS NOTE NAME: WILIAN RIOS UNIT #: [id number] ROOM: 532 DOCTOR: ANGUS GA DO BIRTHDATE: [birth year] DOS: 04/09/2017 SUBJECTIVE: The patient was seen and examined this morning with Dr. Barahona. The patient was scheduled for bronchoscopy this morning. The patient denies of any concerns at this point. OBJECTIVE: VITAL SIGNS: Temperature 97.1, pulse 84, respiratory rate 22, blood pressure 145/70, pulse ox of 96 on 2 liters nasal cannula. HEENT: Shows no changes. NECK: Supple. CARDIOVASCULAR: S1, S2 audible. LUNGS: Noted without any wheezing, crackles at the lower lungs bilaterally. ABDOMEN: Soft, nontender, nondistended. EXTREMITIES: Showed no edema. LABORATORY DATA: White cell count 9.1, hemoglobin 10.3, platelet 287. Sodium 140, BUN 5, creatinine 0.72. Acid serology is pending. INR of 1.1. Bronchial cultures are pending. Bronchoscopy this morning showed mucus plug and tracheobronchitis. IMPRESSION: 1. Acute pneumonia of the left lower lobe. 2. Underlying fibrosis versus interstitial pneumonitis. 3. Urinary tract infection due to Pseudomonas aeruginosa. 4. History of atrial fibrillation. PLAN: 1. The patient had bronchoscopy today, which showed mucus plugs and tracheobronchitis. 2. Continue current bronchodilators, steroids, antibiotics. 3. Usual management care and treatment. 4. Supportive care. ANGUS GA DO [place], [place] PROGRESS NOTE NAME: WILIAN RIOS UNIT #: [id number] ROOM: 532 DOCTOR: ANGUS GA DO BIRTHDATE: [birth year] ROSA BARAHONA MD CM:PNTRANS [id number] ANGUS GA DO 04/09/17 1350 interface
--- NOTE | ~2017-04-03 | PR ---
[place], [place] PROGRESS NOTE NAME: WILIAN RIOS UNIT #: [id number] ROOM: 532 DOCTOR: ROSA CORLEY MD BIRTHDATE: [birth year] DOS: 04/06/2017 PULMONARY PROGRESS NOTE SUBJECTIVE: The patient was seen and examined on 04/06/2017. She has been noted quite cheerful this morning, awake and alert. Cough has been noted with some sputum expectoration, still noted with a cough. Denies symptoms of chest pain. Shortness of breath has been gradually improving. The patient denies symptoms of hemoptysis. OBJECTIVE: VITAL SIGNS: For the patient which has been recorded shows normal temperature, respiratory rate 18, heart rate 75, blood pressure 135/125 over 70. Pulse oxygen saturation of the patient was noted 2 liters nasal cannula 97% saturation. HEENT: Examination showed age-related changes. NECK: Supple. CARDIOVASCULAR: S1, S2 audible. LUNGS: Noted decreased breath sounds in the left lower lung base is still noted. ABDOMEN: Soft, nontender. LABORATORY DATA: INR was noticed 2.02 today, which is in the low therapeutic range. Blood culture from 04/03/2017 showed no bacterial growth, final culture results were pending. Culture of the urine were already noted with Pseudomonas aeruginosa. IMPRESSION: 1. The patient who has been currently noted with area of atelectasis, acute pneumonia in the left lower lobe for this patient with underlying pulmonary fibrosis, usual interstitial pneumonitis. 2. Urinary tract infection, Pseudomonas aeruginosa. 3. History of atrial fibrillation. PLAN OF TREATMENT: Continuation of the current bronchodilators, plan of management, antibiotics, and corticosteroids; current dose for the exacerbation of bronchial asthma management. The patient has been ordered a chest x-ray to be repeated. This week the patient will be assessed for the bronchoscopy as well. Upon further stability of the respiratory status. Other usual plan of management care and treatment, supportive care, other therapies, and usual medical management. [place], [place] PROGRESS NOTE NAME: WILIAN RIOS UNIT #: [id number] ROOM: 532 DOCTOR: ROSA CORLEY MD BIRTHDATE: [birth year] ROSA BARAHONA MD CM:PNTRANS 1347 ROSA TOLENTINO MD 04/07/17 1319 interface
--- NOTE | ~2017-04-03 | PR ---
[place], [place] PROGRESS NOTE NAME: WILIAN RIOS UNIT #: [id number] ROOM: 532 DOCTOR: ANGUS GA DO BIRTHDATE: [birth year] DOS: 04/10/2017 SUBJECTIVE: The patient was seen and examined this morning with Dr. Barahona. The patient is alert, awake, oriented. No nausea, vomiting, diarrhea, or shortness of breath. The patient complains of fatigue. The patient states that she feels better after the bronchoscopy. OBJECTIVE: VITAL SIGNS: Temperature 98.2, pulse 71, respirations 18, blood pressure 130/66, pulse ox 96%. HEENT: Shows no changes. NECK: Supple. CARDIOVASCULAR: S1, S2 audible. LABORATORY DATA: Chemistry: Sodium 140, BUN 5, creatinine 0.72. Hemoglobin 9.1. White cell count 9.1, hemoglobin 10.3, platelet count 287. IMAGING: Chest x-ray done on 04/10/2017 shows improved left basilar opacity. ASSESSMENT: 1. Persistent area of atelectasis, improved. 2. Urinary tract infection with pseudomonas. 3. Chronic hypoxic respiratory failure, improved. 4. History of atrial fibrillation. PLAN: 1. The patient can be discharged on prednisone suspension 15 mg per 5 M/L taper doses and amoxicillin suspension 250 mg over 10 mg p.o. b.i.d. for 7 days. 2. Supportive care. ANGUS GA DO [place], [place] PROGRESS NOTE NAME: WILIAN RIOS UNIT #: [id number] ROOM: 532 DOCTOR: ANGUS GA DO BIRTHDATE: [birth year] ROSA BARAHONA MD CM:PNTRANS 1137 [id number] ANGUS GA DO 04/11/17 0746 interface
--- NOTE | ~2017-04-03 | PR ---
[place], [place] PROGRESS NOTE NAME: WILIAN RIOS UNIT #: [id number] ROOM: 532 DOCTOR: JUN TOLENTINO MD,ROSA BIRTHDATE: [birth year] DOS: 04/05/2017 PULMONARY FOLLOWUP NOTE SUBJECTIVE: The patient was seen today, sitting on the chair. She was denying any symptoms of chest pain. Cough has been noted with some chest congestion, but there was no sputum expectoration. She appears to have been showing signs of depression as well. She was complaining of tinnitus, which still was noted in the ears. OBJECTIVE: VITAL SIGNS: Shows a normal temperature, respiratory rate 20, heart rate 79, blood pressure 150/60 to 105/61. Pulse oxygen saturation on 2 liters nasal cannula 94% saturation. HEENT: Examination shows no new change. NECK: Supple. CARDIOVASCULAR: S1, S2 audible. LUNGS: The patient was noted without any crackles. Decreased breath sounds still noted in the left lower portion of the lungs. ABDOMEN: Soft, nontender. LABORATORY DATA: INR today was noted at 1.6. The culture of the urine was noted as Pseudomonas aeruginosa. CBC of 04/05, WBC count 10.9, hemoglobin 10.1, hematocrit 33.1 and platelet count 240,000. The culture of the urine noted to have a growth of Pseudomonas aeruginosa. IMPRESSION: 1. The patient with Pseudomonas aeruginosa, urinary tract infection with persistent acute on chronic hypoxic respiratory failure. 2. Left lower lobe atelectasis with superimposed acute bacterial pneumonia. 3. History of UIP as well. 4. Symptoms of depression. 5. Tinnitus, etiology unclear. 6. History of atrial fibrillation with subtherapeutic INR. 7. Acute exacerbation of bronchial asthma. PLAN OF TREATMENT: Continue to adjust the Coumadin to maintain a good INR. Continuation of the current antibiotics for this patient. Continuation of the bronchodilators and the flutter valve use. Other supportive therapy, plan and management will be continued. Decrease the dose of Solu-Medrol 30 mg b.i.d. because of the improvement in the wheezing was noted. Other supportive therapy, plan of management. Consideration of fibrobronchoscopy remains with patient upon stability of overall medical status. [place], [place] PROGRESS NOTE NAME: WILIAN RIOS UNIT #: [id number] ROOM: 532 DOCTOR: ROSA CORLEY MD BIRTHDATE: [birth year] ROSA BARAHONA MD CM:LISA 1146 ROSA TOLENTINO MD 04/07/17 0629 interface
--- NOTE | ~2017-04-03 | EKG ---
[place], [place] ELECTROCARDIOGRAM REPORT NAME: WILIAN RIOS UNIT #: [id number] ROOM: 532 DOCTOR: JUN TOLENTINO MD,ROSA BIRTHDATE: [birth year] DOS: 04/08/2017 ELECTROCARDIOGRAM The electrocardiogram was done on 04/08/2017 at 5:32 p.m. Normal sinus rhythm was noted. There was no evidence of atrial fibrillation. Left anterior fascicular block was noted with mild prolongation of acute T interval. Possible old inferior myocardial infarction would be considered. ROSA BARAHONA MD CM:EKGRPT:ELECTROCARDIOGRAM REPORT [id number] ROSA TOLENTINO MD
--- NOTE | ~2017-04-03 | PR ---
[place], [place] PROGRESS NOTE [id number] UNIT #: [id number] ROOM: 532 DOCTOR: ANGUS GA DO BIRTHDATE: [birth year] DOS: 04/10/2017 CONTINUATION LABORATORY DATA: Chemistry: Sodium 140, BUN 5, creatinine 0.72. Hemoglobin 9.1. White cell count 9.1, hemoglobin 10.3, platelet count 287. IMAGING: Chest x-ray done on 04/10/2017 shows improved left basilar opacity. ASSESSMENT: 1. Persistent area of atelectasis, improved. 2. Urinary tract infection with pseudomonas. 3. Chronic hypoxic respiratory failure, improved. 4. History of atrial fibrillation. PLAN: 1. The patient can be discharged on prednisone suspension 15 mg per 5 M/L taper doses and amoxicillin suspension 250 mg over 10 mg p.o. b.i.d. for 7 days. 2. Supportive care. ANGUS GA DO ROSA BARAHONA MD CM:LISA [id number] ANGUS GA DO 04/10/17 1250 interface
--- NOTE | ~2017-04-03 | PR ---
[place], [place] PROGRESS NOTE NAME: WILIAN RIOS UNIT #: [id number] ROOM: 532 DOCTOR: ANGUS GA DO BIRTHDATE: [birth year] DOS: 04/08/2017 SUBJECTIVE: The patient was seen and examined with Dr. Barahona on 04/08/2017. The patient is alert, awake. She has mild coughing. The patient denies any chest pain. Says her breathing has been improved. OBJECTIVE: VITAL SIGNS: Temperature 98.1, pulse of 73, respiratory rate 18, blood pressure 146/63, pulse ox 96 on 2 liters nasal cannula. HEENT: Shows no changes. NECK: Supple. CARDIOVASCULAR: S1, S2 audible. LUNGS: Decreased breath sound at the bases. No crackles or wheezing noted. ABDOMEN: Soft, nontender. LABORATORY DATA: White cell count of 9.1, hemoglobin 10.3, platelets 287. BUN 5, creatinine 0.72. IMPRESSION: 1. Atelectasis, acute pneumonia in the left lower lobe of this patient with underlying pulmonary fibrosis, usual interstitial pneumonitis. 2. Urinary tract infection due to Pseudomonas aeruginosa. 3. History of atrial fibrillation. PLAN: 1. Continue current bronchodilators, steroids and antibiotics. 2. The patient will be scheduled for bronchoscopy tomorrow morning. 3. Usual management, care and treatment. 4. Supportive care. ANGUS GA DO [place], [place] PROGRESS NOTE NAME: WILIAN RIOS UNIT #: [id number] ROOM: 532 DOCTOR: ANGUS GA DO BIRTHDATE: [birth year] ROSA BARAHONA MD CM:PNTRANS [id number] ANGUS GA DO 04/08/17 1424 interface
--- NOTE | ~2017-04-03 | PR ---
[place], [place] PROGRESS NOTE NAME[id number] UNIT #: [id number] ROOM: 532 DOCTOR: JUN TOLENTINO MD,ROSA BIRTHDATE: [birth year] DOS: 04/10/2017 PULMONARY PROGRESS NOTE SUBJECTIVE: The patient was independently seen with [id number] encounter. The history was confirmed and physical examination performed. The assessment and management personally completed for this patient and the recommendation and management were personally made. The note done by the auditor medical claims, was approved. The patient had bronchoscopy done yesterday. Multiple plugs of the mucus removed from the endobronchial tree. IgE level on Aspergillus level, IgE was also ordered in the lab testing. The patient has been showing marked improvement in the respiratory symptom. The chest x-ray done this morning was reviewed, shows significant improvement in the aeration of the lungs in the left lower lobe. Chronic interstitial changes were noted. The cultures of the bronchial washing preliminary showing normal aidee. The patient was noted with no IV access at this time, her medication switched intramuscularly and orally. PLAN OF TREATMENT: Based on the current assessment, the patient could be discharged home with close office followup rather for the bronchial washing cultures. Since the patient could not take the pill form medications, she will be started on the liquid formulation of prednisolone and also oral amoxicillin would suffice. The finding in the left lower lobe improvement was noted consistent with finding of atelectasis secondary to mucous impaction with superimposed acute pneumonia, which is improving as well. She will be seen in my office for followup as outpatient in the next couple of weeks as well. ROSA BARAHONA MD CM:PNTRANS [id number] ROSA TOLENTINO MD 04/10/171915 interface
[~2017-04-03 08:22] MED LIST changes: +HYDROCODONE BIT1 T11 PO; +PREDNISONE50 MG PO; +VITAMIN D34000 UNIT PO
--- NOTE | 2017-04-03 08:59 | NUR ---
PER FAMILY THE PATIENT HAS HAD RECENT INCREASE IN CONFUSION SINCE HER DIAGNOSES OF A UTI. FELIZ NEW
[2017-04-03 09:07] LABS: HEMATOCRIT 42.5 % (37.0-47.0); HEMOGLOBIN 13.2 g/dl (12.0-16.0); MEAN CELL VOLUME 80.6 fl (81.0-99.0); MEAN CORPUSCULAR HGB CONC 31.1 g/dl (33.0-37.0); MEAN PLATELET VOLUME 9.6 fl (9.6-12.3); PLATELET COUNT AUTOMATED 316 10*3/uL (130-400); RED BLOOD COUNT 5.27 10*6/uL (4.10-5.10); RED CELL DISTRI WIDTH 17.9 % (0-14.5); WHITE BLOOD COUNT 18.3 10*3/uL (4.8-10.8)
--- NOTE | 2017-04-03 09:10 | NUR ---
V.O. GIVEN BY DR. LUI FOR STRIGHT CATH, V.O. REPEATED BACK TO DR. LUI AT THIS TIME. SHAQ.RN
[2017-04-03 09:13] LABS: INTERNATIONAL NORM RATIO 1.6 (2.0-3.5)
[2017-04-03 09:21] LABS: ALBUMIN 3.2 gm/dl (3.1-4.5); ALKALINE PHOSPHATASE 92 U/L (45-117); BUN 11 mg/dl (7-24); CHLORIDE 98 mmol/L (98-107); CREATININE 0.82 mg/dL (0.55-1.02); SGOT/AST 15 IU/L (3-35); SGPT/ALT 11 U/L (12-78); SODIUM 134 mmol/L (136-145); TOTAL PROTEIN 7.5 gm/dL (6.4-8.2)
[2017-04-03 09:26] LABS: PLATELET SUFFICIENCY NORMAL (NORMAL); POLYCHROMASIA SLIGHT; TOTAL CELLS COUNTED 100 #CELLS
[2017-04-03 09:42] LABS: BILIRUBIN NEGATIVE (NEGATIVE); BLOOD 3+ (NEGATIVE); CLARITY TURBID (CLEAR); COLOR YELLOW (YELLOW); GLUCOSE NEGATIVE (NEGATIVE); KETONE NEGATIVE (NEGATIVE); PH 6.5 (5.0-9.0); SPECIFIC GRAVITY 1.015 (1.005-1.030)
--- NOTE | 2017-04-03 09:42 | NUR ---
PATIENT IS SLEEPING IN BED WTIH FAMILY PRESENT IN THE ROOM, PATIENT IS IN POSITION OF COMFORT, FAMILY PRESENT IN THE ROOM WITH THE PATIENT, CONTINUING TO MONITOR THE PATIENT. FELIZ NEW
[2017-04-03 09:43] LABS: LEUKO ESTERASE 3+ (NEGATIVE); NITRITE POSITIVE (NEGATIVE); UROBILINOGEN 0.2 E.U./dl (0.2-1.0)
[2017-04-03 09:44] LABS: BACTERIA 4+; RBC TNTC rbc/hpf (0-2); WBC TNTC wbc/hpf (0-5)
--- NOTE | 2017-04-03 10:05 | NUR ---
PATIENT IS ALERT AND PLESANT, FAMILY PRESENT IN THE ROOM WITH THE PATIENT, SKIN IS PALE, WARM, AND DRY, RESPIRATIONS ARE EASY AND NONLABORED AT THIS TIME, CALL LIGHT IN REACH OF THE PATIENT, CONTINUING TO MONITOR THE PATIENT. FELIZ NEW
--- NOTE | 2017-04-03 11:19 | NUR ---
FELIZ HESS MADE AWARE OF THE PATIENT RECIEVING IV ANTIBIOTICS AND FLUIDS AND AWARE OF THE ORDERS HE IS AWARE OF THE VANCOMYCIN THAT STILL NEEDS TO BE ADMINISTERED AND AWARE OF THE ORDER, RN GIVEN THE MEDICATION TO BE ADMINISTERED. FELIZ NEW
--- NOTE | 2017-04-03 11:24 | NUR ---
PATIENT TAKEN TO ROOM 532-1 AND PLACED IN THE BED AT THIS TIME, CARE TRANSFERRED TO FELIZ HESS. FELIZ NEW
--- NOTE | 2017-04-03 11:37 | NUR ---
PT. ARRIVED TO UNIT, ASSESSMENT COMPLETE AND CHARTED, PT. SON AND DAUGHTER IN ROOM, PT. ORIENTED TO UNIT RULES AND ROOM.
--- NOTE | 2017-04-03 11:45 | NUR ---
PTS. FAMILY STATED THAT SOMEONE WILL BE WITH HER AT ALL TIMES DURING HOSPITALIZATION. FAMILY REMINDED THAT THEY NEED TO SPEAK TO NURSE IF PT. IS GOING TO BE LEFT ALONE.
--- NOTE | 2017-04-03 14:00 | NUR ---
PT. REQUESTED MEDICATION FOR GENERALIZED PAIN RATED "6" ON 0-10 SCALE, GIVEN NORCO AT THIS TIME. PT. ALERT AND CALM, WILL RE-ASSESS FOR EFFECTS.
--- NOTE | 2017-04-03 14:30 | NUR ---
PT. AWAKE AND CALM, AWAITING FOOD TRAY, STATED PAIN IS NOW A "3" on 0-10 scale.
--- NOTE | 2017-04-03 14:45 | NUR ---
CONTACTED DR. BARAHONA'S OFFICE TO CONSULT FOR MUCUS PLUGGING. WAS TOLD BY STAFF THAT DR. BARAHONA WILL CALL BACK.
--- NOTE | 2017-04-03 15:27 | NUR ---
TALKED TO DR. BARAHONA, HE IS AWARE OF CONSULT. NO NEW ORDERS AT THIS TIME.
--- NOTE | 2017-04-03 17:20 | NUR ---
FAMILY STATED THAT PT. DOES NOT TAKE REMERON WHEN TAKING ANTIBIOTICS. SPOKE WITH DR. MIDDLETON REGARDING INFORMATION RECEIVED FROM FAMILY. DR. MIDDLETON SAID HE WILL DISCONTINUE THE ORDER.
--- NOTE | 2017-04-03 22:10 | NUR ---
PATIENT MEDICATED WITH NORCO AND ATIVAN PER PRN ORDER AND FAMILY REQUEST FOR INABILITY TO SLEEP AND GENERALIZED DISCOMFORT. SEE EMAR. REINFORCED USE OF CALL LIGHT
[2017-04-04] VITALS: BP 123/66
--- NOTE | 2017-04-04 01:00 | NUR ---
SPOKE TO DR. LORENZO AT PATIENT FAMILY REQUEST FOR SOMETHING TO HELP PATIENT SLEEP. ATIVAN GIVEN EARLIER WAS NOT EFFECTIVE.
[2017-04-04 07:21] LABS: BASO % 0.3 % (0.0-1.0); EOS # 1.3 10*3/uL (0.0-0.4); EOS % 11.1 % (1.0-4.0); LYMPH # 1.3 10*3/uL (1.3-4.4); LYMPH % 11.7 % (27.0-41.0); MEAN CELL VOLUME 83.1 fl (81.0-99.0); MEAN CORPUSCULAR HGB 25.5 pg (27.0-31.0); MEAN CORPUSCULAR HGB CONC 30.7 g/dl (33.0-37.0); MEAN PLATELET VOLUME 9.4 fl (9.6-12.3); MONO # 0.9 10*3/uL (0.1-1.0); MONO % 7.9 % (3.0-9.0); NEUT # 7.9 10*3/uL (2.3-7.9); NEUT % 68.5 % (47.0-73.0); PLATELET COUNT AUTOMATED 225 10*3/uL (130-400); RED BLOOD COUNT 4.31 10*6/uL (4.10-5.10); RED CELL DISTRI WIDTH 17.8 % (0-14.5); WHITE BLOOD COUNT 11.5 10*3/uL (4.8-10.8)
[2017-04-04 07:25] LABS: HEMATOCRIT 35.8 % (37.0-47.0)
[2017-04-04 07:50] LABS: BUN 5 mg/dl (7-24); CHLORIDE 106 mmol/L (98-107); PHOSPHOROUS 2.5 mg/dL (2.5-4.9); POTASSIUM 3.5 mmol/L (3.5-5.1); SODIUM 140 mmol/L (136-145)
--- NOTE | 2017-04-04 07:50 | NUR ---
PT. SLEEPING IN BED UPON ENTERING ROOM, PT. AWAKENED FOR ASSESSMENT. PT. ALERT TO PERSON AND PLACE UPON AWAKENING. PT. WITH I&E WHEEZE, DENIES CP. HEELS MUSHY AND INTACT, TALKED TO DR. MIDDLETON ABOUT ORDER FOR HEEL PROTECTORS. CALL LIGHT WITHIN REACH, BED IN LOWEST POSITION, WHEELS LOCKED. FAMILY AT BEDSIDE.
[2017-04-04 08:00] VITALS: BP 114/61
[2017-04-04 08:00] LABS: DIGOXIN 0.61 ng/ml (0.8-2.0)
--- NOTE | 2017-04-04 08:00 | NUR ---
PT. REFUSED HEEL PROTECTORS.
--- NOTE | 2017-04-04 09:22 | NUR ---
Churner in to talk to patient. Patient states lives at home with family. There are no steps in the home. Physician: bear stoner [facility] [place] [facility] Patient's level of ADLs: MODERATE ASSIST Patient has working utilities: all working DME: home oxygen, portable tank, nebulizer, walker, hospital bed Follow-up physician's appointment after d/c: will be made by hospitalist nurse director upon discharge Does patient want to access PORTAL?: no Discharge plan discussed with patient, 2 sons present, son stated patient lives at home and is cared for 24 hours a day by family, she has all of the equipment needed at home, she also has [facility] that sees her, son stated that patient will be going back home when able and family would like critical access hospital to continue seeing her, will send referral to [facility] for when patient is medically stable for discharge. MELVIN FOSTER
--- NOTE | 2017-04-04 09:55 | NUR ---
ATIVAN GIVEN FOR ANXIETY. FAMILY AT BEDSIDE
--- NOTE | 2017-04-04 10:05 | NUR ---
[facility] REVIEWED WITH PTS. FAMILY.
--- NOTE | 2017-04-04 11:00 | NUR ---
SLEEPING SINCE MEDICATED
[2017-04-04 12:00] VITALS: BP 125/66
[2017-04-04 16:00] VITALS: BP 115/60
--- NOTE | 2017-04-04 19:27 | NUR ---
IV TO RIGHT FOREARM INFILTRATED AND IS SWOLLEN. IV started left hand with #24 protective cath after 1 attempts. Site prepped with Chloroprep. Sterile dressing applied. Patient tolerated procedure well. IV infusing at 70 cc/hr. WILFRED AG
[2017-04-04 20:00] VITALS: BP 103/48
[2017-04-05] VITALS: BP 105/61
[2017-04-05 06:39] LABS: BASO % 0.1 % (0.0-1.0); EOS % 0.1 % (1.0-4.0); HEMATOCRIT 33.1 % (37.0-47.0); HEMOGLOBIN 10.1 g/dl (12.0-16.0); LYMPH # 1.4 10*3/uL (1.3-4.4); LYMPH % 12.9 % (27.0-41.0); MEAN CELL VOLUME 81.3 fl (81.0-99.0); MEAN CORPUSCULAR HGB 24.8 pg (27.0-31.0); MEAN CORPUSCULAR HGB CONC 30.5 g/dl (33.0-37.0); MONO # 0.3 10*3/uL (0.1-1.0); MONO % 2.4 % (3.0-9.0); NEUT % 83.1 % (47.0-73.0); PLATELET COUNT AUTOMATED 240 10*3/uL (130-400); RED BLOOD COUNT 4.07 10*6/uL (4.10-5.10); RED CELL DISTRI WIDTH 17.7 % (0-14.5); WHITE BLOOD COUNT 10.9 10*3/uL (4.8-10.8)
[2017-04-05 07:02] LABS: BUN 5 mg/dl (7-24); CHLORIDE 107 mmol/L (98-107); POTASSIUM 3.8 mmol/L (3.5-5.1); SODIUM 139 mmol/L (136-145)
[2017-04-05 07:06] LABS: INTERNATIONAL NORM RATIO 1.6 (2.0-3.5)
[2017-04-05 08:00] VITALS: BP 150/60
--- NOTE | 2017-04-05 11:32 | NUR ---
Patient's bilateral heels soft and nonblanchable at time of assessment. Patient states she stays in bed most of the time. Patient refused any treatment and heel raiser pro boots. This nurse suggested using a pillow to float heels and patient did agreed to this.
[2017-04-05 12:00] VITALS: BP 122/60
[2017-04-05 16:00] VITALS: BP 126/61
--- NOTE | 2017-04-05 18:26 | NUR ---
DR KAUFFMAN CALLED BACK AND STATED DR REESE SAID TO HAVE PT FOLLOW UP WITH HER PRIMARY DOCTOR R/T LUMPS IN [place].
--- NOTE | 2017-04-05 19:55 | NUR ---
DR. LORENZO AWARE LAB UNABLE TO DRAW BLOOD. LOVENOX TO BE ORDERED INSTEAD OF HEPARIN GTT.
[2017-04-05 20:00] VITALS: BP 113/54
[2017-04-06] VITALS: BP 119/57
--- NOTE | 2017-04-06 03:34 | NUR ---
PATIENT RESTING IN BED WITH EYES CLOSED. DAUGHTER IN CHAIR AT BEDSIDE. NO S/S OF DISTRESS. BED IN LOWEST POSITION, CALL LIGHT IN REACH
[2017-04-06 08:00] VITALS: BP 134/63
[2017-04-06 12:00] VITALS: BP 125/70
--- NOTE | 2017-04-06 12:14 | NUR ---
PT WAS INSTRUCTED ON FLUTTER. PT TOLERATED WELL. PT CAN DO ON HER OWN.
--- NOTE | 2017-04-06 14:19 | NUR ---
DR DIAZ AND DR BARAHONA IN TO SEE EARLIER. NEW ORDERS RECEIVED.
[2017-04-06 16:00] VITALS: BP 121/61
--- NOTE | 2017-04-06 18:13 | NUR ---
MORPHINE 2 MG GIVEN FOR C/O BACK PAIN,02/27.
--- NOTE | 2017-04-06 19:30 | NUR ---
ASSUMED CARE OF PT AT THIS TIME, PT VISITING WITH SON
[2017-04-06 20:00] VITALS: BP 131/66
--- NOTE | 2017-04-06 23:49 | NUR ---
PT RESTING IN BED WITH EYES CLOSED, RESPS EASY AND NONLABORED WITH NO S/S OF DISTRESS, DAUGHTER AT BEDSIDE, CALL LIGHT WITH IN REACH
[2017-04-07] VITALS: BP 117/59
--- NOTE | 2017-04-07 04:01 | NUR ---
RESTING IN BED WITH EYES CLOSED RESPS EASY AND NONLABORED WITH NO S/S OF DISTRESS CALL LIGHT WITH IN REACH
[2017-04-07 06:20] LABS: BASO % 0.1 % (0.0-1.0); HEMATOCRIT 34.1 % (37.0-47.0); HEMOGLOBIN 10.3 g/dl (12.0-16.0); LYMPH # 1.5 10*3/uL (1.3-4.4); MEAN CELL VOLUME 81.8 fl (81.0-99.0); MEAN CORPUSCULAR HGB 24.7 pg (27.0-31.0); MEAN CORPUSCULAR HGB CONC 30.2 g/dl (33.0-37.0); MONO # 0.3 10*3/uL (0.1-1.0); MONO % 3.3 % (3.0-9.0); NEUT % 77.6 % (47.0-73.0); PLATELET COUNT AUTOMATED 287 10*3/uL (130-400); RED BLOOD COUNT 4.17 10*6/uL (4.10-5.10); RED CELL DISTRI WIDTH 18.1 % (0-14.5); WHITE BLOOD COUNT 9.1 10*3/uL (4.8-10.8)
[2017-04-07 06:30] LABS: BUN 5 mg/dl (7-24); CHLORIDE 106 mmol/L (98-107); CREATININE 0.72 mg/dL (0.55-1.02); SODIUM 140 mmol/L (136-145)
[2017-04-07 06:38] LABS: INTERNATIONAL NORM RATIO 1.7 (2.0-3.5)
[2017-04-07 08:00] VITALS: BP 135/71
--- NOTE | 2017-04-07 09:00 | NUR ---
case management visits with patient, son present, son stated that patient would be going home when able and would like [facility] to continue, [facility] will be notified when patient is medically stable for discharge
[2017-04-07 12:00] VITALS: BP 144/77
[2017-04-07 16:00] VITALS: BP 140/70
[2017-04-07 20:00] VITALS: BP 141/70
--- NOTE | 2017-04-07 23:35 | NUR ---
ASSUMED CARE FOR THIS PT AT THIS TIME. SON AT BEDSIDE. ASSESSMENT COMPLETED. PT ALERT TO SELF/PLACE/SITUATION. FORGETFUL AT TIMES AND ANXIOUS. TO MEDICATE WITH PRN ATIVAN. CALL LIGHT IN REACH.
[2017-04-08] VITALS: BP 128/72
--- NOTE | 2017-04-08 01:00 | NUR ---
PT RESTING QUIETLY IN BED. SON AT BEDSIDE. PRN ATIVAN EFFECTIVE FOR ANXIETY.
[2017-04-08 06:44] LABS: INTERNATIONAL NORM RATIO 1.3 (2.0-3.5)
[2017-04-08 08:00] VITALS: BP 132/82
[2017-04-08 12:00] VITALS: BP 146/63
[2017-04-08 16:00] VITALS: BP 136/73
[2017-04-08 20:00] VITALS: BP 132/77
--- NOTE | 2017-04-08 23:45 | NUR ---
PT RESTING QUIETLY IN BED WITH EYES CLOSED. PRN ATIVAN EFFECTIVE.
[2017-04-09] VITALS (9 sets, daily range): BP systolic 120–146; BP diastolic 64–78
--- NOTE | 2017-04-09 04:00 | NUR ---
24 HR chart check completed.
[2017-04-09 06:39] LABS: INTERNATIONAL NORM RATIO 1.1 (2.0-3.5)
[2017-04-10] VITALS: BP 102/55; BP 132/68
--- NOTE | 2017-04-10 04:26 | NUR ---
PT. CALLED OUT TO DESK AND SAID SHE'S "BROKE OUT".PT. HAS HIVES ON UPPER LEGS, BACK AND ARMS AND ITCHY PER PT. CALLED DR. LORENZO AND ORDERS TO BE PLACED.
--- NOTE | 2017-04-10 05:39 | NUR ---
BENADRYL AND PEPCID GIVEN PER ORDER FOR HIVES.
[2017-04-10 08:00] VITALS: BP 130/66
--- NOTE | 2017-04-10 08:51 | NUR ---
DR BARAHONA HERE TO SEEPT. NOTIFIED HIM OF NO IV SITE AND PT NOW ON IM ROCEPHIN AND PO DOXYCYCLINE FAMILY AT BEDSIDE
[2017-04-10] MEDS ORDERED: PREDNISOLO15 MG/5 M1 PO (09:59)
[2017-04-10] MEDS ORDERED: TRIMOX,POL250 MG/5 M PO (09:59)
[2017-04-10 12:00] VITALS: BP 109/51
--- NOTE | 2017-04-10 13:20 | NUR ---
SPOKE WITH PT DTR REGARDING PT BEING DC TODAY. DAUGHTER HAS CONCERNS REGARDING PT BEING DC TODAY , NO PHYSICAL THERAPY HAS WORKED WITH HER, ETC. DR HERNANDEZ NOTIFIED
--- NOTE | 2017-04-10 13:30 | NUR ---
PHYSICAL THERAPY IN TO SEE PT
[2017-04-10 13:50] VITALS: BP 128/72
--- NOTE | 2017-04-10 13:51 | NUR ---
PHYSICAL THERAPY PAtient evaluated on 5, full evaluation to follow. COntinue with PT as per plan of care with fall and 02 precautions. Home with 24 hour family care as prior and home health RN recommended. Home health PT prn. PAtient is low complexity via chart review, tests and evalaution: [id number]. Thank you for this referral. Ela Campos,PT
--- NOTE | 2017-04-10 13:54 | NUR ---
SPOKE WITH MELVIN FOSTER REGARDING HOME HEALTH TO BE RESUMED ON DC
--- NOTE | 2017-04-10 16:22 | NUR ---
Discharge instructions reviewed with patient/family. Patient receptive and verbalizes understanding. Follow-up care arranged. Written instructions given to patient/family. MARISABEL STALLINGS
[2017-04-10 17:07] LABS: ACID FAST SMEAR Negative (.); ACID FAST SPEC PROCESSING Concentration (.)
[2017-04-12 12:06] LABS: ASPERGILLUS FUMIGATU, IGE 1.1 kU/L (Class II)
== END 2017-04-10 16:22 | disposition home health service (06) | DRG 871 ==
LOC: ED 08:22 → 5E 10:08 → EDHOLD 10:08 → 5E 10:16
PROVIDERS: Emergency Medicine; Family Medicine; Internal Medicine Critical Care Medicine; Student in an Organized Health Care Education/Training Program; ADMIT Internal Medicine
PROC: 0BC98ZZ Extirpation of Matter from Lingula Bronchus, Via Natural or Artificial Opening Endoscopic (ICD-10-PCS; principal; 2017-04-09)
PROC: 0BC88ZZ Extirpation of Matter from Left Upper Lobe Bronchus, Via Natural or Artificial Opening Endoscopic (ICD-10-PCS; principal; 2017-04-09)
PROC: 0BC48ZZ Extirpation of Matter from Right Upper Lobe Bronchus, Via Natural or Artificial Opening Endoscopic (ICD-10-PCS; principal; 2017-04-09)
PROC: 0BC68ZZ Extirpation of Matter from Right Lower Lobe Bronchus, Via Natural or Artificial Opening Endoscopic (ICD-10-PCS; principal; 2017-04-09)
PROC: 0BCB8ZZ Extirpation of Matter from Left Lower Lobe Bronchus, Via Natural or Artificial Opening Endoscopic (ICD-10-PCS; principal; 2017-04-09)
PROC: 0BC58ZZ Extirpation of Matter from Right Middle Lobe Bronchus, Via Natural or Artificial Opening Endoscopic (ICD-10-PCS; principal; 2017-04-09)
DX: A41.9 Sepsis, unspecified organism (principal); J96.21 Acute and chronic respiratory failure with hypoxia; G93.41 Metabolic encephalopathy; T17.590A Other foreign object in bronchus causing asphyxiation, initial encounter; J15.9 Unspecified bacterial pneumonia; J44.0 Chronic obstructive pulmonary disease with (acute) lower respiratory infection; D68.59 Other primary thrombophilia; I50.32 Chronic diastolic (congestive) heart failure; J45.901 Unspecified asthma with (acute) exacerbation; E44.1 Mild protein-calorie malnutrition; N39.0 Urinary tract infection, site not specified; J44.1 Chronic obstructive pulmonary disease with (acute) exacerbation; E87.1 Hypo-osmolality and hyponatremia; J98.11 Atelectasis; Z66 Do not resuscitate; I48.0 Paroxysmal atrial fibrillation; J44.9 Chronic obstructive pulmonary disease, unspecified; R65.20 Severe sepsis without septic shock; X58.XXXA Exposure to other specified factors, initial encounter; J84.10 Pulmonary fibrosis, unspecified; K21.9 Gastro-esophageal reflux disease without esophagitis; E03.9 Hypothyroidism, unspecified; F32.9 Major depressive disorder, single episode, unspecified; F41.1 Generalized anxiety disorder; D50.9 Iron deficiency anemia, unspecified; R31.9 Hematuria, unspecified; J98.09 Other diseases of bronchus, not elsewhere classified; Z51.5 Encounter for palliative care; B96.5 Pseudomonas (aeruginosa) (mallei) (pseudomallei) as the cause of diseases classified elsewhere; H93.19 Tinnitus, unspecified ear; B96.89 Other specified bacterial agents as the cause of diseases classified elsewhere; Z99.81 Dependence on supplemental oxygen; Z79.01 Long term (current) use of anticoagulants; Z88.2 Allergy status to sulfonamides; Z88.8 Allergy status to other drugs, medicaments and biological substances; Z91.048 Other nonmedicinal substance allergy status; Z79.1 Long term (current) use of non-steroidal anti-inflammatories (NSAID); Z79.899 Other long term (current) drug therapy; Z79.51 Long term (current) use of inhaled steroids; Z90.49 Acquired absence of other specified parts of digestive tract; Y93.89 Activity, other specified; Y92.89 Other specified places as the place of occurrence of the external cause; Y99.8 Other external cause status; Z90.710 Acquired absence of both cervix and uterus; Z98.49 Cataract extraction status, unspecified eye; Z68.21 Body mass index [BMI] 21.0-21.9, adult

== ENCOUNTER 2017-04-26 13:46 | Emergency (ER) | payer MEDICARE, BC ==
[~2017-04-26] VITALS: Ht 165.1 cm; Wt 48.1 kg
[~2017-04-26 13:46] MED LIST changes: +PREDNISOLO15 MG/5 M1 PO; +TRIMOX,POL250 MG/5 M PO
[2017-04-26 14:28] LABS: BASO % 0.3 % (0.0-1.0); EOS # 0.5 10*3/uL (0.0-0.4); HEMOGLOBIN 11.2 g/dl (12.0-16.0); LYMPH # 3.2 10*3/uL (1.3-4.4); LYMPH % 35.4 % (27.0-41.0); MEAN CELL VOLUME 79.6 fl (81.0-99.0); MEAN CORPUSCULAR HGB 24.8 pg (27.0-31.0); MEAN CORPUSCULAR HGB CONC 31.1 g/dl (33.0-37.0); MEAN PLATELET VOLUME 8.7 fl (9.6-12.3); NEUT # 4.2 10*3/uL (2.3-7.9); NEUT % 46.9 % (47.0-73.0); PLATELET COUNT AUTOMATED 298 10*3/uL (130-400); RED BLOOD COUNT 4.52 10*6/uL (4.10-5.10); RED CELL DISTRI WIDTH 16.8 % (0-14.5)
[2017-04-26 14:39] LABS: BUN 7 mg/dl (7-24); CHLORIDE 99 mmol/L (98-107); CREATININE 0.54 mg/dL (0.55-1.02); MAGNESIUM 2.2 mg/dL (1.5-2.1); POTASSIUM 4.1 mmol/L (3.5-5.1); SODIUM 133 mmol/L (136-145)
[2017-04-26] MEDS ORDERED: OMNICEF300 MG PO (14:54)
[2017-04-26] MEDS ORDERED: PYRIDIUM200 M1 PO (14:54)
[2017-04-26] MEDS ORDERED: ESTRACE 0.01%42.5 GM V (14:54)
[2017-04-26] MEDS ORDERED: CEFDINIR250 MG/5 M PO (15:09)
== END 2017-04-26 16:15 | disposition home or self-care (01) ==
LOC: ED 13:46
PROVIDERS: Emergency Medicine
DX: N39.0 Urinary tract infection, site not specified (principal); N95.2 Postmenopausal atrophic vaginitis; I50.32 Chronic diastolic (congestive) heart failure; I48.0 Paroxysmal atrial fibrillation; K21.9 Gastro-esophageal reflux disease without esophagitis; J44.9 Chronic obstructive pulmonary disease, unspecified; E03.9 Hypothyroidism, unspecified; J45.909 Unspecified asthma, uncomplicated; Z88.2 Allergy status to sulfonamides; Z88.1 Allergy status to other antibiotic agents; Z79.02 Long term (current) use of antithrombotics/antiplatelets; Z79.899 Other long term (current) drug therapy

== ENCOUNTER 2017-06-05 10:19 | Inpatient (IN) | payer MEDICARE, BC ==
[~2017-06-05] VITALS: Ht 157.4 cm; Wt 47.3 kg
--- NOTE | ~2017-06-05 | PR ---
[place], [place] PROGRESS NOTE NAME: WILIAN RIOS UNIT #: [id number] ROOM: 524 DOCTOR: ROSA CORLEY MD BIRTHDATE: [birth year] DOS: 06/09/2017 SUBJECTIVE: She has been noted comfortable at this time without any distress. She has been noted with coughing, but there was no sputum expectoration, which is mild at this time, the oxygen supplementation. Continue with the nasal cannula 3-4 liter nasal cannula of oxygen. OBJECTIVE: VITAL SIGNS: For the patient, which has been recorded shows normal temperature, respiratory rate 20, heart rate 103, blood pressure 136/70. Pulse oxygen saturation 3 liters nasal cannula 93% saturation. HEENT: Chronic changes. NECK: Supple. CARDIOVASCULAR: S1, S2 audible. LUNGS: Decreased breath sounds in the left lung without any wheeze or crackles in the remaining lungs. ABDOMEN: Soft, nontender. LABORATORY DATA: INR today noted 1.4, which is subtherapeutic. BMP; normal BUN and creatinine. Potassium 3.4, mildly decreased. CBC; WBC was mildly elevated at 13.1, hemoglobin 11, hematocrit 36.0, platelet count was normal. IMPRESSION: Recurrent atelectasis of the left lung, possibly superimposed pneumonia with chronic hypoxic respiratory failure for the patient as well. PLAN OF MANAGEMENT: No changes from the pulmonary standpoint and the medical management at this time will be necessary. The patient will be continued on her previous treatment as ordered. Other supportive plan of management and care. No additional changes in the treatment immediately will be needed. At this time, I would not plan on doing any bronchoscopy for the patient because of the recurrent problem and she has not been able to improve with previous bronchoscopy done on this patient in the short term. She developed the recurrent impaction of the mucus of the endobronchial tree bilaterally with that. Comfort measures to be continued for the patient as discussed with the patient's son. However, they have not made any decision about that. [place], [place] PROGRESS NOTE NAME: WILIAN RIOS UNIT #: [id number] ROOM: 524 DOCTOR: ROSA CORLEY MD BIRTHDATE: [birth year] ROSA BARAHONA MD CM:PNTRANS [id number] ROSA TOLENTINO MD 06/10/17 0033 interface
--- NOTE | ~2017-06-05 | PR ---
[place], [place] PROGRESS NOTE [id number] UN[facility] #: [id number] ROOM: 524 DOCTOR: JUN TOLENTINO MD,ROSA BIRTHDATE: [birth year] DOS: 06/10/2017 SUBJECTIVE: The patient has been noted comfortably resting on the bed at the present time without any distress. Oxygen supplementation to be continued, some cough has been noted by the family members. Overall, the patient has been doing poorly for this patient per family members. They were seeking possible hospice assessment. OBJECTIVE: VITAL SIGNS: Temperature 99.5 degree Fahrenheit to normal temperature, respiratory rate 18-20, heart rate 66, blood pressure ____. Pulse oxygen saturation of the patient on 3 liters cannula 94% saturation maintained. HEENT: Showed no new change. NECK: Supple. CARDIOVASCULAR: S1, S2 is audible. LUNGS: The patient was noted without any crackles. Decreased breath sounds in the left lung. ABDOMEN: Soft, nontender. IMPRESSION: The patient with progressive atelectasis of the left lung for this patient with acute pneumonia, ____ of the mucus, acute hypoxic respiratory failure, and multiple other medical problems. PLAN OF TREATMENT: Overall, prognosis of the patient would be considered poor at the present time and guarded. The patient will be recommended for the possible assessment to hospice services, if agreed upon by the family members. No invasive procedure was planned to be done. Continue palliative and comfort care. ROSA BARAHONA MD CM:PNTRANS 1113 [id number] ROSA TOLENTINO MD 06/11/17 0036 interface
--- NOTE | ~2017-06-05 | CON ---
[place], [place] REPORT OF CONSULTATION NAME: WILIAN RIOS [facility] #: [id number] UNIT #: [id number] ROOM: 524 DOCTOR: ROSA CORLEY MD BIRTHDATE: [birth year] DOS: 06/08/2017 CONSULTATION REQUESTED BY: Hospitalist Services. REASON FOR CONSULTATION: Current ongoing respiratory problem and pneumonia. HISTORY OF PRESENT ILLNESS: This is an 87-year-old white female who has been recently noted with frequent hospitalization with area of recurrent atelectasis and pneumonia in the lungs for this patient. The patient required therapy of bronchoscopy on previous couple of admission, the patient to help clear large plugs of mucus from the endobronchial tree. She has been admitted to the hospital under the Hospitalist Services 06/05/2017. She was noted on admission symptoms of having increased shortness of breath as well as burning on urination. These symptoms has been also associated with progressive drop of the oxygen saturation, inability to maintain oxygen saturation to normal level with increased flow of oxygen than usual at home as per son. She had been currently admitted to the hospital. The patient has been noted significantly weak and fatigued. She has been noted to cough, but not expectorating much of the sputum. She has not been reported any symptoms of chest pain at the present time. She has been reported as symptoms of wheezing at times. REVIEW OF SYSTEMS: Could not be completed for the patient at this time as well as the patient is not able to give me a good comprehensive history or comprehension of the speech. PAST MEDICAL HISTORY: 1. History of uncomplicated severe persistent bronchial asthma and acute chronic hypoxic respiratory failure. 2. Allergic rhinitis. 3. Recurrent urinary tract infection. 4. Recurrent pneumonia, atelectasis of lungs secondary to mucus impaction. 5. Idiopathic pulmonary fibrosis. 6. Anemia of chronic disease. 7. Intermittent confusion status possible early dementia as well. 8. Chronic atrial fibrillation on anticoagulation. PAST SURGICAL HISTORY: 1. Noted for several therapeutic bronchoscopy, which has been done on this patient in the past. The bronchoscopy done during recent last admission as well. 2. Bilateral cataract extraction, lens implantation. 3. . 4. Hysterectomy. 5. Cholecystectomy. FAMILY HISTORY: The patient's father at 79 years old of complications of silicosis. Mother at the age of 7878 years old from an unknown medical illnesses. MEDICATIONS: Currently administered medication. The patient was noted as use [place], [place] REPORT OF CONSULTATION NAME: WILIAN RIOS UNIT #: [id number] ROOM: 524 DOCTOR: JUN TOLENTINO MD,ROSA BIRTHDATE: [birth year] of Singulair, digoxin, vitamin D, Flonase, ____, levothyroxine, Symbicort, Risperdal, DuoNeb, lorazepam, IV vancomycin, Levaquin, meropenem and other p.r.n. medications. DRUG ALLERGY HISTORY: Noted as: 1. SULFA DRUGS. 2. MACROBID. 3. ZOSYN. PHYSICAL EXAMINATION: GENERAL: An 87-year-old female who has been currently noted to be fatigued and tired without any distress. Height of 5 feet 2 inches, weight 104 pounds, BMI 19. VITAL SIGNS: The patient shows a normal temperature, respiratory rate of 18-19. Heart rate of 88-86. The blood pressure 97/59-113/59. Pulse oxygen saturation of the patient was noted on 3 liters nasal cannula 98% saturation. HEENT: Examination shows hard of hearing for the patient noted. Head was atraumatic. NECK: Supple. CARDIOVASCULAR: S1, S2 audible. LUNGS: General reduction in breath sounds were noted in the lungs bilaterally. Occasional crackles. Scattered wheezing. ABDOMEN: Flat, soft, nontender. Bowel sounds present. EXTREMITIES: The patient without any edema, clubbing, or cyanosis. MUSCULOSKELETAL: No acute deformities. LABORATORY DATA: CBC of 06/06/2017 for the patient was noted as WBC count 14.2, hemoglobin 10.9, hematocrit 34.3, platelet count was normal; 85% segmented neutrophils were noted. CMP of the patient noted normal BUN and creatinine. Sodium 135, potassium was normal. Urine culture heavy growth of Klebsiella pneumoniae with 100,000 colony forming units. Blood cultures 2 sets from 16 of this month, no bacterial growth so far. The PT/INR were noted 3.4, the patient on 06/07/2017 was noted in therapeutic range. CBC for the patient that was done for this patient this morning WBC count 11.3, hemoglobin 11, hematocrit 34.5, platelet count was normal. The INR today was noted as 2.0, which is low therapeutic range. BMP, normal BUN and creatinine for the patient was noted. The one-view chest x-ray of the patient that was done on this admission was reviewed, shows volume loss noted left side with the interval development of recurrent atelectasis and/or infiltration combination for the patient with mediastinal shift towards the left side. Additional infiltration in the right upper lung for the patient was suggested as well. IMPRESSION: 1. The patient who has been currently noted with recurrence of the atelectasis pneumonic infiltration in the left lung with inability to clear secretion with the severe debility, protein-calorie malnutrition and low body mass index. 2. Recurrence of acute exacerbation of chronic obstructive pulmonary disease as well. 3. History of recurrent urinary tract infection. [place], [place] REPORT OF CONSULTATION NAME: WILIAN RIOS UNIT #: [id number] ROOM: 524 DOCTOR: ROSA CORLEY MD BIRTHDATE: [birth year] PLAN OF TREATMENT: In general the patient has been doing very poorly, during the current hospitalization and also noted the comfort care in an elderly female. Recommendation for this patient at this time, I would not be planning on any bronchoscopy at this time because of frequent bronchoscopy which has be done previously and the patient was noted with recurrence of the current atelectasis of the lung. She should be treated comfortably for the comfort measure with current broad-spectrum intravenous antibiotic with expectant treatment. Consider assessment for this patient and discussion with the family members about the hospice services assessment. Other supportive plan and management to be continued previously in progress. Continue bronchodilator to help mobilize secretions. Usual treatment, all other plan of care. Optimize the nutritional status of the patient as tolerated. Other additional treatment changes to be made in the treatment based on progression of the illness. ROSA BARAHONA MD CM:CONSTR:REPORT OF CONSULTATION 1452 06/09/17 0132 interface
[~2017-06-05 10:19] MED LIST changes: +CEFDINIR250 MG/5 M PO; +ESTRACE 0.01%42.5 GM V; +OMNICEF300 MG PO; +PYRIDIUM200 M1 PO
[2017-06-05 10:42] VITALS: BP 125/73
[2017-06-05 11:28] LABS: BASO % 0.2 % (0.0-1.0); EOS # 0.3 10*3/uL (0.0-0.4); EOS % 2.2 % (1.0-4.0); HEMATOCRIT 41.1 % (37.0-47.0); HEMOGLOBIN 13.1 g/dl (12.0-16.0); LYMPH # 2.6 10*3/uL (1.3-4.4); LYMPH % 17.1 % (27.0-41.0); MEAN CELL VOLUME 77.7 fl (81.0-99.0); MEAN CORPUSCULAR HGB 24.8 pg (27.0-31.0); MEAN CORPUSCULAR HGB CONC 31.9 g/dl (33.0-37.0); MEAN PLATELET VOLUME 8.4 fl (9.6-12.3); MONO % 6.3 % (3.0-9.0); NEUT # 11.3 10*3/uL (2.3-7.9); NEUT % 73.9 % (47.0-73.0); PLATELET COUNT AUTOMATED 360 10*3/uL (130-400); RED BLOOD COUNT 5.29 10*6/uL (4.10-5.10); WHITE BLOOD COUNT 15.3 10*3/uL (4.8-10.8)
[2017-06-05 11:34] LABS: BILIRUBIN NEGATIVE (NEGATIVE); BLOOD 2+ (NEGATIVE); CLARITY CLOUDY (CLEAR); COLOR YELLOW (YELLOW); GLUCOSE NEGATIVE (NEGATIVE); KETONE NEGATIVE (NEGATIVE); LEUKO ESTERASE 2+ (NEGATIVE); NITRITE POSITIVE (NEGATIVE); PH 7.5 (5.0-9.0); UROBILINOGEN 0.2 E.U./dl (0.2-1.0)
[2017-06-05 11:45] LABS: ALBUMIN 2.6 gm/dl (3.1-4.5); ALKALINE PHOSPHATASE 112 U/L (45-117); BUN 6 mg/dl (7-24); CHLORIDE 100 mmol/L (98-107); CREATININE 0.71 mg/dL (0.55-1.02); SGOT/AST 14 IU/L (3-35); SGPT/ALT 8 U/L (12-78); SODIUM 134 mmol/L (136-145); TOTAL PROTEIN 7.4 gm/dL (6.4-8.2)
[2017-06-05 11:46] LABS: TROPONIN I < 0.015 ng/ml (<0.045)
[2017-06-05 11:48] LABS: ACT PARTIAL THROMBO TIME 53.4 SECONDS (20.8-31.5)
[2017-06-05 11:51] LABS: INTERNATIONAL NORM RATIO 5.6 (2.0-3.5)
[2017-06-05 12:12] LABS: BACTERIA 3+; EPITHELIAL CELLS 0-2; WBC 21-30 wbc/hpf (0-5)
[2017-06-05 12:15] VITALS: BP 115/64
[2017-06-05 12:58] VITALS: BP 100/62
--- NOTE | 2017-06-05 13:04 | NUR ---
A 87, admitted to , under the services of BEN Cisneros DO with a diagnosis of UTI, SEVERE SEPSIS, SUPRATHERAPEUTIC INR. Chief complaint is SOB. Patient arrived via bed from ER. Monitor applied. Initial assessment completed. Vital signs taken and recorded. BEN CISNEROS DO notified of admission to the unit. Orders received. See assessment for past medical history, medications and allergies. Patient and/or family oriented to unit. [facility] visitation policy reviewed. Clothing/patient valuable form completed. MARK RENDON
--- NOTE | 2017-06-05 13:05 | NUR ---
ATTEMPTED TO CALL REPORT. AWAITING RETURN CALL.
--- NOTE | 2017-06-05 13:45 | NUR ---
Time: 1339 A 87 year old FEMALE admitted to 5E under services of BEN CISNEROS DO, Pt. arrived via bed from ER. Chief complaint: SOB, DYSURIA X 3 DAYS. DARCY INGRAM
--- NOTE | 2017-06-05 13:55 | NUR ---
JOSE PIPER AT BEDSIDE WITH PATIENT AT THIS TIME.
[2017-06-05 14:05] VITALS: BP 105/69
[2017-06-05] MEDS ORDERED: OXYBUTYNIN5 MG/5 M1 PO (14:59)
[2017-06-05] MEDS ORDERED: RISPERDAL0.5 MG PO (14:59)
--- NOTE | 2017-06-05 15:35 | NUR ---
MED REC COMPLETED AT BEDSIDE WITH SON AND MED LIST.
[2017-06-05 16:00] VITALS: BP 107/69
[2017-06-05 20:00] VITALS: BP 113/75
--- NOTE | 2017-06-05 20:30 | NUR ---
PATIENT RESTING QUIETLY IN BED WITH DAUGHTER AT BEDSIDE. NO SXS OF DISTRESS AT THIS TIME, PATIENT HAS NO VOICED COMPLAINTS. FLUIDS MAINTAINED PER ORDER. CALL LIGHT IS IN REACH. WILL MONITOR.
[2017-06-06] VITALS: BP 126/69
[2017-06-06 04:00] VITALS: BP 110/67
--- NOTE | 2017-06-06 06:38 | NUR ---
PT RESTING IN BED. DAUGHTER AT BEDSIDE. NO DISTRESS NOTED.
[2017-06-06 06:52] LABS: BASO % 0.1 % (0.0-1.0); LYMPH # 1.3 10*3/uL (1.3-4.4); LYMPH % 8.9 % (27.0-41.0); MEAN CELL VOLUME 77.8 fl (81.0-99.0); MEAN CORPUSCULAR HGB 24.7 pg (27.0-31.0); MEAN CORPUSCULAR HGB CONC 31.8 g/dl (33.0-37.0); MEAN PLATELET VOLUME 8.6 fl (9.6-12.3); MONO # 0.7 10*3/uL (0.1-1.0); MONO % 4.6 % (3.0-9.0); NEUT # 12.2 10*3/uL (2.3-7.9); NEUT % 85.7 % (47.0-73.0); PLATELET COUNT AUTOMATED 302 10*3/uL (130-400); RED BLOOD COUNT 4.41 10*6/uL (4.10-5.10); WHITE BLOOD COUNT 14.2 10*3/uL (4.8-10.8)
[2017-06-06 06:53] LABS: HEMATOCRIT 34.3 % (37.0-47.0); HEMOGLOBIN 10.9 g/dl (12.0-16.0)
[2017-06-06 06:58] LABS: ALBUMIN 2.3 gm/dl (3.1-4.5); BUN 9 mg/dl (7-24); CHLORIDE 103 mmol/L (98-107); CREATININE 0.62 mg/dL (0.55-1.02); SGOT/AST 13 IU/L (3-35); SGPT/ALT 9 U/L (12-78); SODIUM 135 mmol/L (136-145)
[2017-06-06 07:00] LABS: ALKALINE PHOSPHATASE 96 U/L (45-117); TOTAL PROTEIN 6.5 gm/dL (6.4-8.2)
[2017-06-06 08:00] VITALS: BP 129/69
--- NOTE | 2017-06-06 09:00 | NUR ---
Flame Channeler in to talk to patient. Patient states lives at home with family. There are no steps in the home. Physician: bear stoner [facility]acy: [facility] [place] [facility]: none at present Patient's level of ADLs: MODERATE ASSIST Patient has working utilities: all working DME: home oxygen, portable tanks,m walker, nebulizer, hospital bed Follow-up physician's appointment after d/c: will be made by hospitalist nurse director upon discharge Does patient want to access PORTAL?: no Discharge plan discussed with patient, son present, son stated patient lives at home and family takes turns staying with her, she has all of the equipment she needs at home, son also stated she had [facility] in the past and they would like [facility] reordered for when patient is discharged, . MELVIN FOSTER
--- NOTE | 2017-06-06 10:24 | NUR ---
SPEECH PATHOLOGY CONSULT RECEIVED AND APPRECIATED TO CLINICALLY EVALUATE PT'S SWALLOWING FUNCTION. HPI: MRS. RIOS WAS ADMITTED TO [facility] ON 06/05/17 2/2 SOB. CXR WAS REVEALING FOR RUL AND LL PNA. PT ALSO DX WITH RESPIRATORY FAILURE, CHF, DEPRESSION, FTT, AND UI. PT WAS PREVIOUSLY DX WITH COLON CANCER AND HAS REPORTEDLY BEEN DECLINING SINCE. PMHX INCLUDES COPD, DOLLY, GERD, METABOLIC ENCEPHALOPATHY, PNEUMONITIS, RECURRENT UTI, SEVERE SEPSIS, AND TACHYPNEA. PT IS PREVIOUSLY UNKNOWN TO [employer]. CODE STATUS: [id number]-CC GENERAL COMMENTS: DISCUSSED CASE WITH RN WHO HAD NO CONCERNS REGARDING PT'S TOLERANCE TO DIET (PUREED FOODS WITH THIN LIQUIDS). PT AND DAUGHTER ALSO DENIED CONCERNS. PT PREFERS PUREED FOODS AND HAS BEEN EATING THIS DIET FOR MANY YEARS. SHE REPORTED FREQUENT COUGHING 2/2 CURRENT PNA BUT DENIED INCREASE IN COUGHING WHEN EATING/DRINKING. ORAL MECHANISM EXAM: STRENGTH, STEADINESS, ROM, SPEED, AND ACCURACY OF LIPS, TONGUE, JAW, AND UPPER AND LOWER FACE WERE WFL FOR SPEECH AND SWALLOWING. PT HAS UPPER DENTURES AND NATURAL LOWER DENTITION WITH MULTIPLE TEETH MISSING. HER RIGHT EYE DID NOT TRACK WITH THE LEFT. BASELINE COUGH NOTED. MOTOR SPEECH EXAM: PT'S CONVERSATIONAL SPEECH WAS C/B ADEQUATE RESPIRATORY SUPPORT FOR SENTENCE-LENGTH UTTERANCES, NORMAL RESONANCE, ARTICULATION, AND PROSODY. MILD BREATHY VOCAL QUALITY, C/W ADVANCED AGE. SPEECH AMRS WERE WNL FOR RATE, RHYTHM, AND PRECISION, ALTHOUGH PT WAS UNABLE TO MAINTAIN PRODUCTION 2/2 RESPIRATORY EFFORT; SMRS WERE SEQUENCED ADEQUATELY. SWALLOWING: PT SELF-FED THIN LIQUIDS VIA CUP X5 AND PUREED FOODS VIA TSP X3. ORAL PHASE: ADEQUATE BOLUS ACCEPTANCE WITH NO ANTERIOR LOSS NOTED. BOLUS MANIPULATION APPEARED TIMELY AND ADEQUATE. NO APPRECIABLE ORAL RESIDUE. PHARYNGEAL PHASE: HLE VISUALIZED. NO OVERT S/S OF ASPIRATION/PENETRATION WERE OBSERVED DURING PO TRIALS. IMPRESSIONS: PT PRESENTS WITH NORMAL SWALLOWING FUNCTION; NO OVERT S/S OF ASPIRATION/PENETRATION WERE OBSERVED ACROSS PO TRIALS. SHE PREFERS A DIET OF PUREED FOODS AND HAS BEEN TOLERATING THIS FOR SEVERAL YEARS; RECOMMEND CONTINUING THIS DIET. PT'S ASPIRATION RISK FACTORS INCLUDE ADVANCED AGE AND DX OF COPD, GERD; RECOMMEND ADHERENCE TO PRECAUTIONS BELOW TO REDUCE THIS RISK. RECOMMENDATIONS: 1. CONTINUE CURRENT DIET - PUREED FOODS WITH THIN LIQUIDS 2. STANDARD ASPIRATION PRECAUTIONS: FULLY UPRIGHT, AWAKE, AND ALERT FOR ALL PO; SMALL BITES/SIPS; ORAL CARE AT LEAST BID POC: [employer] WILL F/U, LIKELY X1, TO ENSURE TOLERANCE TO DIET AND REINFORCE ASPIRATION PRECAUTIONS. THANK YOU FOR CONSULTING. KALLIE BURR-[employer]
[2017-06-06 11:10] LABS: INTERNATIONAL NORM RATIO 6.2 (2.0-3.5)
--- NOTE | 2017-06-06 11:13 | NUR ---
KRISTEN ALEXANDER CALLED AND REPORT CRITICAL INR.
[2017-06-06 12:00] VITALS: BP 119/70
--- NOTE | 2017-06-06 15:21 | NUR ---
Patient resting quietly with no c/o discomfort. Respirations easy and regular. Vital signs stable. No overt distress. DERREK CRUZ R
[2017-06-06 16:00] VITALS: BP 125/65
--- NOTE | 2017-06-06 19:59 | NUR ---
PT. IS RESTING COMFORTABLY IN BED RECIEVING BREATHING TX, WITH SON AT BEDSIDE. PT. VOICES NO CONCERNS OR COMPLAINTS AT THIS TIME, NO DISTRESS NOTED. PT. HAS HOB ELEVATED AND CALL LIGHT WITHIN REACH. SEE SHIFT ASSESSMENT.
[2017-06-06 20:00] VITALS: BP 111/54
[2017-06-07] VITALS: BP 108/55
[2017-06-07 08:00] VITALS: BP 122/69
--- NOTE | 2017-06-07 11:33 | NUR ---
DR. BARAHONA NOTIFIED OF PATIENT CONSULT. UPDATED ON PATIENTS CONDTION AND NO CONCERNS WERE NOTED FROM DR. BARAHONA
[2017-06-07 11:34] LABS: INTERNATIONAL NORM RATIO 3.4 (2.0-3.5)
--- NOTE | 2017-06-07 11:58 | NUR ---
PATIENTS JOHNSON CATH REMOVED PER DR. MACHADO. NO COMPLICATIONS
[2017-06-07 12:00] VITALS: BP 97/59
--- NOTE | 2017-06-07 14:13 | NUR ---
PATIENT VOIDED. ASSISTANCE WAS NEEDED TO THE BSC. THE PATIENT HAD A SEMISOLID LARGE BM WELL. BLADDER SCAN WAS COMPLETED AFTER URINATION AND 100-110ML IS LEFT OVER. NO OTHER CONCERNS AT THIS TIME.
[2017-06-07 16:00] VITALS: BP 115/67
[2017-06-07 20:00] VITALS: BP 121/71
[2017-06-08] VITALS: BP 113/59
[2017-06-08 07:15] LABS: BASO % 0.2 % (0.0-1.0); EOS % 9.1 % (1.0-4.0); HEMATOCRIT 34.5 % (37.0-47.0); LYMPH % 26.8 % (27.0-41.0); MEAN CELL VOLUME 77.4 fl (81.0-99.0); MEAN CORPUSCULAR HGB 24.7 pg (27.0-31.0); MEAN CORPUSCULAR HGB CONC 31.9 g/dl (33.0-37.0); MEAN PLATELET VOLUME 8.7 fl (9.6-12.3); MONO % 8.4 % (3.0-9.0); NEUT # 6.2 10*3/uL (2.3-7.9); NEUT % 54.9 % (47.0-73.0); PLATELET COUNT AUTOMATED 317 10*3/uL (130-400); RED BLOOD COUNT 4.46 10*6/uL (4.10-5.10); RED CELL DISTRI WIDTH 14.8 % (0-14.5); WHITE BLOOD COUNT 11.3 10*3/uL (4.8-10.8)
[2017-06-08 07:42] LABS: ALBUMIN 2.2 gm/dl (3.1-4.5); ALKALINE PHOSPHATASE 88 U/L (45-117); BUN 5 mg/dl (7-24); CHLORIDE 101 mmol/L (98-107); CREATININE 0.48 mg/dL (0.55-1.02); POTASSIUM 3.5 mmol/L (3.5-5.1); SGOT/AST 11 IU/L (3-35); SGPT/ALT 10 U/L (12-78); SODIUM 137 mmol/L (136-145); TOTAL PROTEIN 6.1 gm/dL (6.4-8.2)
--- NOTE | 2017-06-08 08:00 | NUR ---
PT RESTING IN BED, EYES CLOSED. FAMILY AT BEDSIDE
[2017-06-08 12:00] VITALS: BP 95/57
--- NOTE | 2017-06-08 12:08 | NUR ---
PT MEDICATED WITH NORCO FOR C/O GEN PAIN. PT RATES PAIN 8/10. WILL MONITOR
--- NOTE | 2017-06-08 13:48 | NUR ---
PT SLEEPING IN BED, NO DISTRESS NOTED. NORCO APPEARS EFFECTIVE, WILL MONITOR. FAMILY AT BEDSIDE
[2017-06-08 16:00] VITALS: BP 109/59
--- NOTE | 2017-06-08 19:24 | NUR ---
PATIENT IS RESTING IN BED. PT FAMILY AT THE BEDSIDE. FAMILY REPORTS SHE HAS BEEN SLEEPING THROUGHOUT THE DAY. PATIENT RECEIVING 3LPM VIA NC. PATIENT HAS BEEN COMPLAINING ABOUT BURNING UPON URINATION. PATIENT DENIES ANY PAIN OR DISCOMFORT UPON ASSESSMENT. NO FURTHER REQUESTS AT THIS TIME. CALL LIGHT WITHIN, SEE ASSESSMENT.
[2017-06-08 20:00] VITALS: BP 112/57; BP 127/77
--- NOTE | 2017-06-08 20:29 | NUR ---
PATIENT GIVEN NORCO PER PT REQUEST FOR PAIN RATED 6/10 IN THE BACK. WILL CONTINUE TO MONITOR AND REASSESS.
--- NOTE | 2017-06-08 20:31 | NUR ---
PATIENT GIVEN NORCO PER PT REQUEST FOR PAIN RATED 6/10 AND DESCRIBED ACHY. WILL CONTINUE TO MONITOR AND REASSESS.
--- NOTE | 2017-06-08 21:35 | NUR ---
MEDICATION WAS EFFECTIVE. PATIENT IS RESTING SOUNDLY IN BED WITH FAMILY AT THE BEDSIDE WILL CONTINUE TO MONITOR.
[2017-06-09] VITALS: BP 128/76
[2017-06-09 06:55] LABS: BASO % 0.2 % (0.0-1.0); EOS # 0.9 10*3/uL (0.0-0.4); EOS % 6.8 % (1.0-4.0); HEMOGLOBIN 11.1 g/dl (12.0-16.0); LYMPH # 1.3 10*3/uL (1.3-4.4); LYMPH % 9.8 % (27.0-41.0); MEAN CELL VOLUME 77.9 fl (81.0-99.0); MEAN CORPUSCULAR HGB CONC 30.8 g/dl (33.0-37.0); MEAN PLATELET VOLUME 8.6 fl (9.6-12.3); MONO # 0.9 10*3/uL (0.1-1.0); MONO % 6.8 % (3.0-9.0); NEUT % 75.7 % (47.0-73.0); PLATELET COUNT AUTOMATED 310 10*3/uL (130-400); RED BLOOD COUNT 4.62 10*6/uL (4.10-5.10); RED CELL DISTRI WIDTH 14.8 % (0-14.5); WHITE BLOOD COUNT 13.1 10*3/uL (4.8-10.8)
[2017-06-09 07:27] LABS: BUN 7 mg/dl (7-24); CHLORIDE 102 mmol/L (98-107); CREATININE 0.56 mg/dL (0.55-1.02); POTASSIUM 3.4 mmol/L (3.5-5.1); SODIUM 137 mmol/L (136-145)
[2017-06-09 08:00] VITALS: BP 136/70
--- NOTE | 2017-06-09 09:00 | NUR ---
case management visits with patient, patient not able to carry on a conversation, but son and daughter were present, son stated that they were still p davina on taking patient home with [facility], case management will follow
[2017-06-09 09:13] LABS: INTERNATIONAL NORM RATIO 1.4 (2.0-3.5)
--- NOTE | 2017-06-09 09:30 | NUR ---
DR. BARAHONA IN TO SEE PATIENT. DECIDED AGAINST ANY INVASIVE PROCEDURES. ENCOURAGED COMFORT CARE.
--- NOTE | 2017-06-09 10:56 | NUR ---
PATIENT IS RESTING IN BED, FAMILY AT THE BEDSIDE. PATIENT IS INCONTINENT AND REQUIRES 2+ ASSIST FOR REPOSITIONING. PATIENT REPORTS FEELING SOB ON 3LPM VIA NC. PATIENT DENIES ANY PAIN OR DISCOMFORT UPON ASSESSMENT. CALL LIGHT IS WITHIN REACH, HOB ELEVATED, HEELS ELEVATED. SEE ASSESSMENT.
--- NOTE | 2017-06-09 12:00 | NUR ---
DR. REESE IN TO SEE PATIEBNT AND DISCUSS HOSPICE CARE.
--- NOTE | 2017-06-09 12:42 | NUR ---
SPEECH PATHOLOGY Patient was seen for treatment this pm. Family members were present. Patient was alert and cooperative but needed continuous encouragement to eat and drink even a small bit. Family reported that she has been this way "for years." She did accept a small bit of water and pudding. She swallowed in a timely manner with no residue, cough or wet vocal quality. Family reported that patient has been tolerating food and liquid well as she has been, but that appetite remains poor. They also reported that someone remains with her at the hospital 10/02 and that they keep a cooler in her room, full of boost and pureed snacks that she likes, in an attempt to improve her intake. Clinician discussed with patient the need to eat as much as possible to ensure she is taking in adequate vitamins and nutrients. Patient verbalized agreement. As she is tolerating present diet with no overt difficulty and is functioning at max. potential, recommend discharge from speech pathology services at this time. Thank you for this referral. RAMESH CHAMBERLAIN [facility] DESK LEAD
[2017-06-09 16:00] VITALS: BP 103/46
[2017-06-09 20:00] VITALS: BP 102/48
--- NOTE | 2017-06-09 20:00 | NUR ---
LAB RESULTS AND ORDERS REVIEWED. PT RESTING IN BED WITH FAMILY AT BEDSIDE. NO S AND S OF ACUTE DISTRESS NOTED AT THIS TIME.
[2017-06-10] VITALS: BP 84/40
--- NOTE | 2017-06-10 04:00 | NUR ---
PT IN BED RESTING. DAUGHTER AT BEDSIDE. NO DISTRESS NOTED CURRENTLY. WILL CONTINUE TO MONITOR.
[2017-06-10 06:36] LABS: BASO % 0.3 % (0.0-1.0); EOS # 0.6 10*3/uL (0.0-0.4); EOS % 4.7 % (1.0-4.0); HEMATOCRIT 33.7 % (37.0-47.0); HEMOGLOBIN 10.6 g/dl (12.0-16.0); LYMPH % 17.2 % (27.0-41.0); MEAN CELL VOLUME 78.2 fl (81.0-99.0); MEAN CORPUSCULAR HGB 24.6 pg (27.0-31.0); MEAN CORPUSCULAR HGB CONC 31.5 g/dl (33.0-37.0); MEAN PLATELET VOLUME 8.5 fl (9.6-12.3); MONO % 8.4 % (3.0-9.0); NEUT % 68.5 % (47.0-73.0); PLATELET COUNT AUTOMATED 273 10*3/uL (130-400); RED BLOOD COUNT 4.31 10*6/uL (4.10-5.10); RED CELL DISTRI WIDTH 14.6 % (0-14.5); WHITE BLOOD COUNT 11.7 10*3/uL (4.8-10.8)
[2017-06-10 07:03] LABS: BUN 10 mg/dl (7-24); CHLORIDE 102 mmol/L (98-107); CREATININE 0.67 mg/dL (0.55-1.02); POTASSIUM 3.7 mmol/L (3.5-5.1); SODIUM 137 mmol/L (136-145)
[2017-06-10 07:06] LABS: INTERNATIONAL NORM RATIO 1.3 (2.0-3.5)
[2017-06-10 08:00] VITALS: BP 112/56
--- NOTE | 2017-06-10 08:34 | NUR ---
Shift chart check completed.
[2017-06-10 12:00] VITALS: BP 108/60
--- NOTE | 2017-06-10 12:29 | NUR ---
DR GA IS AWARE AND ALSO CALLED HOSPICE OF [facility] THAT FAMILY HAS DECIDED THEY WANT TO TAKE PATIENT HOME WITH HOSPICE.
--- NOTE | 2017-06-10 13:36 | NUR ---
PT RESTING IN BED. MEDICATED WITH ATIVAN IV PER PRN ORDER AND FAMILY REQUEST. PT ANXIOUS. CALL LIGHT IN REACH. VISITORS AT HER SIDE.
--- NOTE | 2017-06-10 15:02 | NUR ---
PATIENT REFUSED PO MEDS
--- NOTE | 2017-06-10 15:52 | NUR ---
AT 1529 PT'S FAMILY REFUSED TX
[2017-06-10 16:00] VITALS: BP 112/56
--- NOTE | 2017-06-10 19:30 | NUR ---
ASSUMED CARE OF PT AT THIS TIME RESPS EASY AND NONLABORED WITH NO S/S OF DISTRESS CALL LIGHT WITH IN REACH
[2017-06-10 20:00] VITALS: BP 94/54
--- NOTE | 2017-06-11 | NUR ---
PATIENTS FAMILY IS REFUSING MIDNIGHT VITALS BECAUSE THE PATIENT IS SLEEPING.
--- NOTE | 2017-06-11 01:30 | NUR ---
FAMILY PRESENT AT NURSES STATION, STATES PATIENT IS AWAKE AND COMPLAINING OF RESP DISCOMFORT. MED REC REVIEWED WITH DAUGHTER, OFFERED NORCO BUT DECLINED STATING PATIENT IS UNABLE TO SWALLOW. OFFERED IV ATIVAN, DAUGHTER INITIALLY HESITANT. OFFERED TO CONTACT DR FOR FURTHER ORDERS, DECLINED. IV ATIVAN ADMINISTERED PER ORDER. WILL MONITOR
--- NOTE | 2017-06-11 07:30 | NUR ---
ASSUMED CARE OF PT AT THIS TIME, RESPS EASY AND NONLABORED WITH NO S/S OF DISTRESS CALL LIGHT WITH IN REACH
[2017-06-11 08:00] VITALS: BP 128/72
--- NOTE | 2017-06-11 08:48 | NUR ---
PT FAMILY REFUSED TO HAVE LABS DRAWN TODAY
[2017-06-11 12:00] VITALS: BP 122/70
[2017-06-11] MEDS ORDERED: MORPHINE S10 MG/5 M1 PO (12:42)
[2017-06-11] MEDS ORDERED: ATIVAN ORAL C2 MG/ML PO (12:42)
[2017-06-11 16:00] VITALS: BP 112/68
--- NOTE | 2017-06-11 16:35 | NUR ---
DR. GA INFORMED ABOUT RESP. MED (DUONEB) LEAKING FROM NEBULIZER AND PT RECEIVING 1-[address], DAUGHTER WANTS PT TO HAVE ANOTHER TX. DAUGHTER STATES PT DID NOT GET A WHOLE MINUTE OF TX. DR. GA STATING PT CAN RECEIVE ANOTHER DUONEB. RN INFORMED.
--- NOTE | 2017-06-11 17:11 | NUR ---
Discharge instructions reviewed with patient/family. Patient receptive and verbalizes understanding. Follow-up care arranged. Written instructions given to patient/family. MARI US
== END 2017-06-11 17:11 | disposition hospice, home (50) | DRG 871 ==
LOC: ED 10:19 → EDHOLD 12:55 → 5E 12:55
PROVIDERS: Hospitalist; Internal Medicine; Nurse Practitioner Family; Registered Nurse; ADMIT Internal Medicine
DX: A41.9 Sepsis, unspecified organism (principal); J69.0 Pneumonitis due to inhalation of food and vomit; E43 Unspecified severe protein-calorie malnutrition; J96.21 Acute and chronic respiratory failure with hypoxia; J15.6 Pneumonia due to other Gram-negative bacteria; J44.0 Chronic obstructive pulmonary disease with (acute) lower respiratory infection; I48.0 Paroxysmal atrial fibrillation; I50.32 Chronic diastolic (congestive) heart failure; Z99.81 Dependence on supplemental oxygen; J44.1 Chronic obstructive pulmonary disease with (acute) exacerbation; N30.00 Acute cystitis without hematuria; Z68.1 Body mass index [BMI] 19.9 or less, adult; R65.20 Severe sepsis without septic shock; R62.7 Adult failure to thrive; Z96.1 Presence of intraocular lens; Z51.5 Encounter for palliative care; Z66 Do not resuscitate; E03.9 Hypothyroidism, unspecified; K21.9 Gastro-esophageal reflux disease without esophagitis; K57.90 Diverticulosis of intestine, part unspecified, without perforation or abscess without bleeding; F32.9 Major depressive disorder, single episode, unspecified; F41.1 Generalized anxiety disorder; M54.9 Dorsalgia, unspecified; G89.29 Other chronic pain; Z96.641 Presence of right artificial hip joint; R79.1 Abnormal coagulation profile; Z88.2 Allergy status to sulfonamides; Z88.8 Allergy status to other drugs, medicaments and biological substances; Z91.048 Other nonmedicinal substance allergy status; Z79.899 Other long term (current) drug therapy; Z90.49 Acquired absence of other specified parts of digestive tract; Z90.710 Acquired absence of both cervix and uterus; Z84.89 Family history of other specified conditions; Z85.038 Personal history of other malignant neoplasm of large intestine; Z87.01 Personal history of pneumonia (recurrent); Z87.440 Personal history of urinary (tract) infections; Z79.01 Long term (current) use of anticoagulants; Z98.42 Cataract extraction status, left eye; Z98.41 Cataract extraction status, right eye